=== PATIENT | female | born 1985 | race Caucasian/White ===

== ENCOUNTER → 2016-09-28 | Outpatient (CLI) | payer OTHER ==
--- NOTE | 2016-09-28 09:20 | MR ---
EXAMINATION TYPE: MR brain wo/w con DATE OF EXAM: 09/28/2016 8:03 AM COMPARISON: CT brain January 25, 2012. HISTORY: Headaches unusual duration greater than 2 weeks not responding to therapy per order. Migrain e headaches per patient. TECHNIQUE: Multiplanar, multisequence images of the brain and brainstem is performed without and with IV contras t, utilizing 19 mL intravenous MultiHance . FINDINGS: Diffusion weighted images demonstrate no evidence of a recent infarct or other diffusion ab normality. There is no extra-axial fluid collection or significant white matter signal abnormality. The ventricular system and cisternal spaces are normal in size and appearance. The brain volume is age appropriate. Midline structures demonstrate normal morphology. The craniocervical junction appears within normal limits. Post contrast images demonstrate no abnormal enhancement. The dural venous sinuses appear pa tent. There is mild mucosal thickening inferiorly in bilateral maxillary sinuses otherwise paranasal sinuses are clear. The globes are intact bilaterally. IMPRESSION: Mild chronic maxillary sinus disease otherwise unremarkable study.
== END | disposition home or self-care (01) ==
LOC: RADMRIMAIN 07:20
PROVIDERS: ATTEND Family Medicine
DX: R51 Headache (principal)
CPT/HCPCS: 70553; A9577

== ENCOUNTER → 2016-12-07 | Outpatient (CLI) | payer BC, OTHER ==
[2016-12-07 18:34] LABS: Basophils % (A) 0 %; CH 31.1; CHCM 34.4; Eosinophils # (A) 0.2 k/uL (0-0.7); Eosinophils % (A) 2 %; HCT 40.8 % (34.0-46.0); HDW 2.43; HGB 13.8 gm/dL (11.4-16.0); Luc % (Auto) 2; Lymphocytes # (A) 2.1 k/uL (1.0-4.8); Lymphocytes % (A) 31 %; MCH 30.6 pg (25.0-35.0); MCHC 33.8 g/dL (31.0-37.0); MCV 90.7 fL (80.0-100.0); Mean Platelet Volume 8.2; Monocytes # (A) 0.4 k/uL (0-1.0); Monocytes % (A) 5 %; Neutrophils # (A) 4.2 k/uL (1.3-7.7); Neutrophils % (A) 60 %; RDW 12.6 % (11.5-15.5); WBC (Perox) 6.78
[2016-12-07 18:59] LABS: ALT 41 U/L (9-52); AST 26 U/L (14-36); Alkaline Phosphatase 69 U/L (38-126); Anion Gap 13 mmol/L; Blood Urea Nitrogen 10 mg/dL (7-17); Calcium 9.8 mg/dL (8.4-10.2); Carbon Dioxide 25 mmol/L (22-30); Chloride 102 mmol/L (98-107); Cholesterol 149 mg/dL (<200); Glucose 88 mg/dL (74-99); HDL Cholesterol 39 mg/dL (40-60); Non-African American GFR(MDRD) >60 (>60 ml/min/1.73 sqM); Potassium 3.9 mmol/L (3.5-5.1); Sodium 140 mmol/L (137-145); Total Bilirubin 0.4 mg/dL (0.2-1.3); Total Protein 6.8 g/dL (6.3-8.2); Triglycerides 115 mg/dL (<150)
== END ==
LOC: MMGSC 13:50
PROVIDERS: ATTEND Family Medicine
DX: Z00.00 Encounter for general adult medical examination without abnormal findings (principal)
CPT/HCPCS: 36415; 80053; 80061; 84439; 84443; 85025

== ENCOUNTER 2017-01-06 00:31 | Emergency (ER) | payer BC, OTHER ==
[2017-01-06 01:55] LABS: Appearance,Urine Clear (Clear); Bacteria,Urine Rare /hpf; Bilirubin,Urine Negative (Negative); Glucose,Urine (UA) Negative (Negative); Ketones,Urine Negative (Negative); Leukocyte Esterase,Urine Small (Negative); Nitrite,Urine Negative (Negative); Particle Count 4079; Protein,Urine Negative (Negative); RBC,Urine 2 /hpf (0-5); Specific Gravity,Urine 1.002 (1.001-1.035); Squamous Epithelial Cell,Urine 1 /hpf (0-4); UA Billing (MACRO vs. MICRO) MICRO; Urobilinogen,Urine <2.0 mg/dL (<2.0); WBC,Urine 2 /hpf (0-5)
--- NOTE | 2017-01-06 02:47 | US ---
EXAM: US First Trimester, Transabdominal US , Transvaginal CLINICAL HISTORY: Reason: Pain TECHNIQUE: Real-time transabdominal and transvaginal obstetrical ultrasound of the maternal pelvis and a first trimester with image documentation. Transvaginal imaging was used for better evaluation of the fetus and adnexa. COMPARISON: None FINDINGS: Gestation: Single live intrauterine gestation with heart rate of 114 BPM. [place]-rump length measurement is 3.4 mm corresponding to 6 weeks 0 days. MAYRA is 09/01/2017. Date of last menstrual period is unknown. Normal yolk sac visualized measuring 3 mm. Placenta/amniotic fluid: There is a subchorionic hemorrhage measuring 1.1 x 0.5 x 0.4 cm. Uterus/cervix: The uterus measures 9.0 x 4.5 x 5.3 cm. No myometrial mass. Ovaries: The right ovary has normal morphology measuring 2.7 x 1.8 x 1. 6 cm. The left ovary measures 3.3 x 2.4 x 3.4 cm. There is a corpus luteal cyst measuring 1.7 x 1.6 x 1.9 cm. No mass. Free fluid: No pelvic free fluid. IMPRESSION: 1. Single live intrauterine gestation with ultrasound gestational age of 6 weeks 0 days, MAYRA 09/01/2017. 2. Small subchorionic hemorrhage measures 1.1 x 0.5 x 0.4 cm. Serial trending beta hCG values along with short-term interval obstetrical ultrasound recommended for follow-up.
--- NOTE | 2017-01-06 02:49 | ED ---
Female Urogenital HPI - General Chief complaint: Urogenital Stated complaint: , bleeding Time Seen by Provider: 01/06/17 00:54 Source: patient, RN notes reviewed, old records reviewed Mode of arrival: ambulatory Limitations: no limitations - Related Data Allergies Allergy/AdvReac Type Severity Reaction Status Date / Time No Known Allergies Allergy Verified 01/06/17 00:51 Review of Systems ROS Statement: Those systems with pertinent positive or pertinent negative responses have been documented in the HPI. ROS Other: All systems not noted in ROS Statement are negative. Past Medical History Past Medical History: Hypertension History of Any Multi-Drug Resistant Organisms: None Reported Past Surgical History: Cholecystectomy Past Psychological History: No Psychological Hx Reported Smoking Status: Current every day smoker Past Alcohol Use History: None Reported Past Drug Use History: None Reported General Exam - General Exam Comments Initial Comments: Well-appearing 31-year-old female. No acute distress. Limitations: no limitations General appearance: alert, in no apparent distress Head exam: Present: atraumatic, normocephalic, normal inspection Eye exam: Present: normal appearance, PERRL, EOMI. Absent: scleral icterus, conjunctival injection, periorbital swelling ENT exam: Present: normal exam, mucous membranes moist Neck exam: Present: normal inspection. Absent: tenderness, meningismus, lymphadenopathy Respiratory exam: Present: normal lung sounds bilaterally. Absent: respiratory distress, wheezes, rales, rhonchi, stridor Cardiovascular Exam: Present: regular rate, normal rhythm, normal heart sounds. Absent: systolic murmur, diastolic murmur, rubs, gallop, clicks GI/Abdominal exam: Present: soft, normal bowel sounds. Absent: distended, tenderness, guarding, rebound, rigid Extremities exam: Present: normal inspection, full ROM, normal capillary refill. Absent: tenderness, pedal edema, joint swelling, calf tenderness Back exam: Present: normal inspection Neurological exam: Present: alert, oriented X3, CN II-XII intact Psychiatric exam: Present: normal affect, normal mood Skin exam: Present: warm, dry, intact, normal color. Absent: rash Course Vital Signs 01/06/17 00:47 Temperature 98.6 F Pulse Rate 92 Respiratory 20 Rate Blood Pressure 113/72 O2 Sat by Pulse 100 Oximetry Medical Decision Making - Medical Decision Making 31-year-old female since eating chief complaint of concern for a threatened miscarriage. She reports she did have some bleeding when she had a bowel movement. Patient reports no continued bleeding at this time. Ultrasound shows IUP of 6 weeks and 2 days. Vaginal exam shows no evidence of clots or dilated cervix. Patient has no cervical tenderness. We did culture for trichomoniasis and gonorrhea and chlamydia. Patient is currently pending. HCG and the ABO Rh. - Lab Data Lab Results 01/06/17 01/06/17 01/06/17 Range/Units 01:30 02:20 02:20 HCG, Quant 80547.7 mIU/mL Urine Color Colorless Urine Appearance Clear (Clear) Urine pH 7.0 (5.0-8.0) Ur Specific [place] 1.002 (1.001-1.035) Urine Protein Negative (Negative) Urine Glucose (UA) Negative (Negative) Urine Ketones Negative (Negative) Urine Blood Trace H (Negative) Urine Nitrite Negative (Negative) Urine Bilirubin Negative (Negative) Urine Urobilinogen <2.0 (<2.0) mg/dL Ur Leukocyte Esterase Small H (Negative) Urine RBC 2 (0-5) /hpf Urine WBC 2 (0-5) /hpf Ur Squamous Epith Cells 1 (0-4) /hpf Urine Bacteria Rare H (None) /hpf Blood Type A Positive Blood Type Recheck A Pos - Radiology Data Radiology results: report reviewed Disposition Clinical Impression: Threatened miscarriage Disposition: HOME SELF-CARE Condition: Good Instructions: Threatened Miscarriage (ED) Additional Instructions: Patient advised to repeat blood work in 2 days. Return to the emergency department if any alarming signs or symptoms occur. Follow-up with SUPERVISING NURSE. Referrals: Yina Barboza MD [Primary Care Provider] - 1-2 days Time of Disposition: 03:10
[2017-01-06 04:02] VITALS: BP 100/62; PULSE 73; RESP 18; TEMP 97.7
== END 2017-01-06 03:29 | disposition home or self-care (01) ==
LOC: EC 00:31
DX: O20.0 Threatened abortion (principal); O99.331 Smoking (tobacco) complicating pregnancy, first trimester; F17.200 Nicotine dependence, unspecified, uncomplicated; Z3A.01 Less than 8 weeks gestation of pregnancy
CPT/HCPCS: 36415; 76801; 76817; 81001; 84702; 86900; 86901; 87070; 87086; 87205; 87491; 87591; 87808; 99284

== ENCOUNTER → 2017-01-08 | Outpatient (CLI) | payer BC | END | disposition home or self-care (01) | LOC: LABWHC1 09:31 | PROVIDERS: ATTEND Physician Assistant Medical | DX: O20.0 Threatened abortion (principal) | CPT/HCPCS: 36415; 84702 ==

== ENCOUNTER 2017-02-18 16:11 | Emergency (ER) | payer BC ==
[2017-02-18] MEDS ORDERED: diphenhydrAMINE 50 MG/ML 1 ML VIAL IVP STA (16:46)
[2017-02-18] MEDS ORDERED: SODIUM CHLORIDE 0.9% 1,000 ML IV STA ×2 (16:46)
[2017-02-18] MEDS ORDERED: METOCLOPRAMIDE 5 MG/ML 2 ML VIAL IVP STA (16:46)
--- NOTE | 2017-02-18 16:52 | ED ---
Nausea/Vomiting/Diarrhea HPI - General Chief complaint: Nausea/Vomiting/Diarrhea Stated complaint: Vomiting 12 weeks Time Seen by Provider: 02/18/17 16:20 Source: patient, RN notes reviewed, old records reviewed Mode of arrival: ambulatory Limitations: no limitations - History of Present Illness Initial comments: This is a 31-year-old female presenting to the emergency Department chief complaint of increased nausea and some right lower quadrant abdominal pain as well as a fever today. Patient currently is 12 weeks . She was urged to come in here by her METAL MACHINIST. Patient reports she is 12 weeks . Patient states that she's had no abnormal vaginal bleeding or discharge. She states that she's had no urinary symptoms. She states any time she's been trying to eat or drink anything today she vomits it back up. Surgical history includes cholecystectomy. Patient states that she had fever 100.2, and took a Tylenol. She states that that was 2 hours prior to arrival and I have a fever at this time. - Related Data Home Medications Medication Instructions Recorded Confirmed Buprenorphine HCl [Subutex] 4 mg SL DAILY 02/18/17 02/18/17 Ondansetron Odt [Zofran ODT] 4 mg PO Q6HR 02/18/17 02/18/17 Pnv,Calcium 72/Iron/Folic Acid 1 tab PO DAILY 02/18/17 02/18/17 [ Plus Tablet] Zoloft Unknown Dose 1 tab PO DAILY 02/18/17 02/18/17 Previous Rx's Medication Instructions Recorded Metoclopramide [Reglan] 10 mg PO ACHS #12 tab 02/18/17 Allergies Allergy/AdvReac Type Severity Reaction Status Date / Time No Known Allergies Allergy Verified 02/18/17 16:53 Review of Systems ROS Statement: Those systems with pertinent positive or pertinent negative responses have been documented in the HPI. ROS Other: All systems not noted in ROS Statement are negative. Past Medical History Past Medical History: Hypertension History of Any Multi-Drug Resistant Organisms: None Reported Past Surgical History: Cholecystectomy Past Psychological History: Anxiety, Depression Smoking Status: Current every day smoker Past Alcohol Use History: None Reported Past Drug Use History: None Reported General Exam - General Exam Comments Initial Comments: 31-year-old female. Patient will be in any acute distress. Limitations: no limitations General appearance: alert, in no apparent distress Head exam: Present: atraumatic, normocephalic, normal inspection Eye exam: Present: normal appearance, PERRL, EOMI. Absent: scleral icterus, conjunctival injection, periorbital swelling ENT exam: Present: normal exam, mucous membranes moist Neck exam: Present: normal inspection. Absent: tenderness, meningismus, lymphadenopathy Respiratory exam: Present: normal lung sounds bilaterally Cardiovascular Exam: Present: regular rate GI/Abdominal exam: Present: soft, tenderness (Patient has right lower quadrant abdominal tenderness.), normal bowel sounds. Absent: distended, guarding, rebound, rigid Extremities exam: Present: normal inspection, full ROM, normal capillary refill. Absent: tenderness, pedal edema, joint swelling, calf tenderness Back exam: Present: normal inspection Neurological exam: Present: alert, oriented X3, CN II-XII intact Psychiatric exam: Present: normal affect, normal mood Skin exam: Present: warm, dry, intact, normal color. Absent: rash Course Vital Signs 02/18/17 02/18/17 02/18/17 16:15 18:08 19:17 Temperature 98.1 F 98.0 F Pulse Rate 76 71 69 Respiratory 16 18 18 Rate Blood Pressure 105/54 100/59 104/61 O2 Sat by Pulse 98 99 97 Oximetry Medical Decision Making - Medical Decision Making 31-year-old female 12 weeks increased vomiting and right lower quadrant abdominal pain. Patient was given IV fluids and labwork obtained. White blood cell count. Ultrasound of the the appendix was performed, appendix was not 100% visualized but no infiltrate changes noted. Patient was reevaluated and is nontender. Ultrasound OB shows normal 12 week IUP. Normal heart tones. Patient urinalysis was negative for any sign of infection as well. Discussed the patient likely has some viral gastroenteritis. Discussed monitoring for any worsening fevers, just Tylenol appropriately. Discussed that she can return if she is continuing to have a fever and the pain is continuing to worsen or persist. As this could be sign of early appendicitis. Patient understands treatment plan will comply. She will be discharged with Reglan for further nausea management. - Lab Data Result diagrams: 02/18/17 17:00 02/18/17 17:00 Lab Results 02/18/17 02/18/17 02/18/17 Range/Units 17:00 17:00 17:00 WBC 6.8 (3.8-10.6) k/uL RBC 3.93 (3.80-5.40) m/uL Hgb 12.1 (11.4-16.0) gm/dL Hct 34.3 (34.0-46.0) % MCV 87.1 (80.0-100.0) fL MCH 30.7 (25.0-35.0) pg MCHC 35.2 (31.0-37.0) g/dL RDW 13.2 (11.5-15.5) % Plt Count 267 (150-450) k/uL Neutrophils % 63 % Lymphocytes % 30 % Monocytes % 4 % Eosinophils % 2 % Basophils % 0 % Neutrophils # 4.3 (1.3-7.7) k/uL Lymphocytes # 2.1 (1.0-4.8) k/uL Monocytes # 0.3 (0-1.0) k/uL Eosinophils # 0.1 (0-0.7) k/uL Basophils # 0.0 (0-0.2) k/uL PT (9.0-12.0) sec INR (<1.2) APTT (22.0-30.0) sec Sodium 137 (137-145) mmol/L Potassium 4.6 (3.5-5.1) mmol/L Chloride 106 (98-107) mmol/L Carbon Dioxide 23 (22-30) mmol/L Anion Gap 8 mmol/L BUN 7 (7-17) mg/dL Creatinine 0.50 L (0.52-1.04) mg/dL Est GFR (MDRD) Af Amer >60 (>60 ml/min/1.73 sqM) Est GFR (MDRD) Non-Af >60 (>60 ml/min/1.73 sqM) Glucose 86 (74-99) mg/dL Plasma Lactic Acid Amrit 0.9 (0.7-2.0) mmol/L Calcium 9.3 (8.4-10.2) mg/dL Total Bilirubin 0.4 (0.2-1.3) mg/dL AST 31 (14-36) U/L ALT 34 (9-52) U/L Alkaline Phosphatase 62 (38-126) U/L Troponin I (0.000-0.034) ng/mL Total Protein 6.1 L (6.3-8.2) g/dL Albumin 3.5 (3.5-5.0) g/dL Amylase 36 (30-110) U/L Lipase 45 (23-300) U/L Urine Color Urine Appearance (Clear) Urine pH (5.0-8.0) Ur Specific [place] (1.001-1.035) Urine Protein (Negative) Urine Glucose (UA) (Negative) Urine Ketones (Negative) Urine Blood (Negative) Urine Nitrite (Negative) Urine Bilirubin (Negative) Urine Urobilinogen (<2.0) mg/dL Ur Leukocyte Esterase (Negative) Urine RBC (0-5) /hpf Urine WBC (0-5) /hpf Ur Squamous Epith Cells (0-4) /hpf Urine Mucus (None) /hpf 02/18/17 02/18/17 02/18/17 Range/Units 17:00 17:00 17:33 WBC (3.8-10.6) k/uL RBC (3.80-5.40) m/uL Hgb (11.4-16.0) gm/dL Hct (34.0-46.0) % MCV (80.0-100.0) fL MCH (25.0-35.0) pg MCHC (31.0-37.0) g/dL RDW (11.5-15.5) % Plt Count (150-450) k/uL Neutrophils % % Lymphocytes % % Monocytes % % Eosinophils % % Basophils % % Neutrophils # (1.3-7.7) k/uL Lymphocytes # (1.0-4.8) k/uL Monocytes # (0-1.0) k/uL Eosinophils # (0-0.7) k/uL Basophils # (0-0.2) k/uL PT 9.9 (9.0-12.0) sec INR 1.0 (<1.2) APTT 23.4 (22.0-30.0) sec Sodium (137-145) mmol/L Potassium (3.5-5.1) mmol/L Chloride (98-107) mmol/L Carbon Dioxide (22-30) mmol/L Anion Gap mmol/L BUN (7-17) mg/dL Creatinine (0.52-1.04) mg/dL Est GFR (MDRD) Af Amer (>60 ml/min/1.73 sqM) Est GFR (MDRD) Non-Af (>60 ml/min/1.73 sqM) Glucose (74-99) mg/dL Plasma Lactic Acid Amrit (0.7-2.0) mmol/L Calcium (8.4-10.2) mg/dL Total Bilirubin (0.2-1.3) mg/dL AST (14-36) U/L ALT (9-52) U/L Alkaline Phosphatase (38-126) U/L Troponin I <0.012 (0.000-0.034) ng/mL Total Protein (6.3-8.2) g/dL Albumin (3.5-5.0) g/dL Amylase (30-110) U/L Lipase (23-300) U/L Urine Color Yellow Urine Appearance Cloudy H (Clear) Urine pH 6.5 (5.0-8.0) Ur Specific [place] 1.014 (1.001-1.035) Urine Protein Negative (Negative) Urine Glucose (UA) Negative (Negative) Urine Ketones Negative (Negative) Urine Blood Negative (Negative) Urine Nitrite Negative (Negative) Urine Bilirubin Negative (Negative) Urine Urobilinogen <2.0 (<2.0) mg/dL Ur Leukocyte Esterase Small H (Negative) Urine RBC 3 (0-5) /hpf Urine WBC 3 (0-5) /hpf Ur Squamous Epith Cells 7 H (0-4) /hpf Urine Mucus Rare H (None) /hpf Disposition Clinical Impression: Vomiting , Abdominal pain affecting Disposition: HOME SELF-CARE Condition: Good Instructions: Abdominal Pain in (ED) Additional Instructions: Patient is to rest, increase fluids. Return to the emergency department if fevers continue to persist or worsen, patient also needs to monitor for any worsening abdominal pain. Take nausea medication as prescribed. Follow-up with her primary care METAL MACHINIST. Return to emergency department if any alarming signs or symptoms occur. Prescriptions: Metoclopramide [Reglan] 10 mg PO ACHS #12 tab Referrals: Yina Barboza MD [Primary Care Provider] - 1-2 days Time of Disposition: 18:39
[2017-02-18 17:19] LABS: Basophils % (A) 0 %; CH 31.1; CHCM 35.9; Eosinophils # (A) 0.1 k/uL (0-0.7); Eosinophils % (A) 2 %; HCT 34.3 % (34.0-46.0); HDW 2.53; HGB 12.1 gm/dL (11.4-16.0); Luc # (Auto) 0.07; Luc % (Auto) 1; Lymphocytes # (A) 2.1 k/uL (1.0-4.8); Lymphocytes % (A) 30 %; MCH 30.7 pg (25.0-35.0); MCHC 35.2 g/dL (31.0-37.0); MCV 87.1 fL (80.0-100.0); Mean Platelet Volume 8.3; Monocytes # (A) 0.3 k/uL (0-1.0); Monocytes % (A) 4 %; Neutrophils # (A) 4.3 k/uL (1.3-7.7); Neutrophils % (A) 63 %; RBC 3.93 m/uL (3.80-5.40); RDW 13.2 % (11.5-15.5); WBC 6.8 k/uL (3.8-10.6); WBC (Perox) 6.72
[2017-02-18 17:31] LABS: Appearance,Urine Cloudy (Clear); Bilirubin,Urine Negative (Negative); Glucose,Urine (UA) Negative (Negative); Ketones,Urine Negative (Negative); Leukocyte Esterase,Urine Small (Negative); Mucus,Urine Rare /hpf; Nitrite,Urine Negative (Negative); PH, Urine 6.5 (5.0-8.0); Particle Count 4492; Protein,Urine Negative (Negative); RBC,Urine 3 /hpf (0-5); Specific Gravity,Urine 1.014 (1.001-1.035); Squamous Epithelial Cell,Urine 7 /hpf (0-4); UA Billing (MACRO vs. MICRO) MICRO; Urobilinogen,Urine <2.0 mg/dL (<2.0); WBC,Urine 3 /hpf (0-5)
[2017-02-18 17:39] LABS: ALT 34 U/L (9-52); AST 31 U/L (14-36); Alkaline Phosphatase 62 U/L (38-126); Amylase 36 U/L (30-110); Anion Gap 8 mmol/L; Blood Urea Nitrogen 7 mg/dL (7-17); Calcium 9.3 mg/dL (8.4-10.2); Carbon Dioxide 23 mmol/L (22-30); Chloride 106 mmol/L (98-107); Glucose 86 mg/dL (74-99); Non-African American GFR(MDRD) >60 (>60 ml/min/1.73 sqM); Potassium 4.6 mmol/L (3.5-5.1); Sodium 137 mmol/L (137-145); Total Bilirubin 0.4 mg/dL (0.2-1.3); Total Protein 6.1 g/dL (6.3-8.2)
[2017-02-18 17:50] LABS: Partial Thromboplastin Time 23.4 sec (22.0-30.0); Prothrombin Time 9.9 sec (9.0-12.0)
[2017-02-18 18:08] VITALS: RESP 18
--- NOTE | 2017-02-18 18:15 | US ---
EXAMINATION TYPE: US abdomen APPY DATE OF EXAM: 02/18/2017 COMPARISON: NONE CLINICAL HISTORY: Pain. 12 weeks , mild pelvic pain, fever earlier today, nausea/vomiting, on Zofran already Scanned RLQ and no visible sign of appendix seen. Enlarging UT noted along with iliac vessels and rig ht ovary. No tubular structure, free fluid or any other etiology noticed. IMPRESSION: Appendix is not visualized. No specific sign of appendicitis.
--- NOTE | 2017-02-18 18:17 | US ---
EXAMINATION TYPE: US OB <= 14 wk fetus DATE OF EXAM: 02/18/2017 COMPARISON: 01/06/2017 CLINICAL HISTORY: Pain. Nausea and vomiting, patient already on Zofran, mild pelvic pain EXAM PERFORMED: OBTA EXAM MEASUREMENTS: GESTATIONAL AGE / DATING Physician Established: (12 weeks/3 days) EDC: 08/30/2017 Dates by LMP: unknown Dates by First Scan: (12 weeks/1 days) EDC: 09/01/2017 Dates by Current Scan for: (12 weeks/4 days) EDC: 08/29/2017 MATERNAL ANATOMY Uterus: 13.2 x 9.7 x 8.2cm Right Ovary: 2.5 x 1.8 x 1.7cm Left Ovary: 3.9 x 3.3 x 2.6cm Post CDS / Adnexa: wnl Presence of free fluid: no Presence of corpus luteal cyst: yes, left ovary = 1.9cm Presence of subchorionic bleed: no GESTATION / SURVEY CRL: 6.1cm (12 weeks/4 days) MSD: wnl Yolk Sac (normal less than 6mm): not seen Heart Rate: 151 bpm Rhythm: Normal IUP: Viable IUP Date of LMP: unknown Beta HcG (if available): pending IMPRESSION: The ultrasound gestational age is 12 weeks 4 days. The MAYRA is 08/29/2017. There is satisfactory develo pment compared to last exam of 01/06/2017.
[2017-02-18 19:18] VITALS: BP 104/61; PULSE 69; TEMP 98
== END 2017-02-18 19:18 | disposition home or self-care (01) ==
LOC: EC 16:11
DX: O21.9 Vomiting of pregnancy, unspecified (principal); O99.89 Other specified diseases and conditions complicating pregnancy, childbirth and the puerperium; R10.31 Right lower quadrant pain; I10 Essential (primary) hypertension; F32.9 Major depressive disorder, single episode, unspecified; F41.9 Anxiety disorder, unspecified; Z3A.12 12 weeks gestation of pregnancy; F17.200 Nicotine dependence, unspecified, uncomplicated; Z79.899 Other long term (current) drug therapy
CPT/HCPCS: 36415; 80053; 82150; 83605; 83690; 84484; 85025; 85610; 85730; 81001; 87040; 76705; 76801; 99284; 96374; 96375; 96361 ×2; J1200; J2765

== ENCOUNTER 2017-05-02 19:42 | Outpatient (CLI) | payer BC ==
[2017-05-02] MEDS ORDERED: ONDANSETRON 4 MG/2 ML VIAL IVP STA (20:14)
[2017-05-02] MEDS ORDERED: LACTATED RINGERS 1,000 ML IV ONE (20:15)
[2017-05-02 20:42] LABS: Appearance,Urine Cloudy (Clear); Bilirubin,Urine 1+ (Negative); Glucose,Urine (UA) Negative (Negative); Ketones,Urine Negative (Negative); Leukocyte Esterase,Urine Trace (Negative); Mucus,Urine Moderate /hpf; Nitrite,Urine Negative (Negative); Particle Count 10511; Protein,Urine 1+ (Negative); RBC,Urine 3 /hpf (0-5); Specific Gravity,Urine 1.023 (1.001-1.035); Squamous Epithelial Cell,Urine 8 /hpf (0-4); UA Billing (MACRO vs. MICRO) MICRO; WBC,Urine 3 /hpf (0-5)
[2017-05-02 21:17] VITALS: BP 116/61; PULSE 93; RESP 18; TEMP 97.7
--- NOTE | 2017-05-10 13:06 | P.MSEPDOC ---
Presenting Problems - Arrival Data Date of Arrival on Unit: 05/02/17 Time of Arrival on Unit: 19:42 Mode of Transport: Wheelchair - Complaint OB-Reason for Admission/Chief Complaint: Other Comment: nash, n/v Medical History - Information : 2 Para: 1 Term: 1 : 0 Abortions: Spontaneous or Elective: 0 Number of Living Children: 1 - Gestational Age Gestational Age by MAYRA (wks/days): 23 Weeks and 5 Days Review of Systems - Review of Systems Constitutional: No problems Breast: No problems ENT: No problems Cardiovascular: No problems Respiratory: No problems Gastrointestinal: No problems Genitourinary: No problems Musculoskeletal: No problems Neurological: No problems Skin: No problems Vital Signs - Temperature Temperature: 97.7 F Temperature Source: Temporal Artery Scan - Pulse Right Brachial Pulse Rate: 93 Pulse Assessment Method: Automatic Cuff - Respirations Respiratory Rate: 18 Oxygen Delivery Method: Room Air O2 Sat by Pulse Oximetry: 100 - Blood Pressure Right Arm Blood Pressure: 116/61 Blood Pressure Mean: 79 Blood Pressure Source: Automatic Cuff Medical Screen Scoring (Pre) - Cervical Exam Dilation: Exam Deferred Effacement: Exam Deferred Membranes: Intact - Uterine Contractions Frequency: N/A Duration: N/A Intensity: N/A - Maternal Vital Signs Maternal Temperature: N/A Maternal Blood Pressure: N/A Signs of Preeclampsia: N/A Maternal Respirations: N/A - Pain Assessment Pain Scale Used: Numeric (1 - 10) Pain Intensity: 0 - Maternal Trauma Maternal Trauma: N/A - Assessment Baseline FHR: 140 Heart Rate - NICHD Category: Category I (Normal) = 0 Position: N/A Station: N/A - Total Score Total Score (Pre): 0 - Level of Risk Level of Risk: N/A Physician Notification (Pre) - Physician Notified Physician Notified Date: 05/02/17 Physician Notified Time: 20:11 Physician/Practitioner Notifed:: Dr. Reardon Spoke With: Dr. Reardon New Order Received: Yes - Notification Comment Comment: give LR fluid bolus, obtain UA, and zofran IVp Medical Screen Scoring (Post) - Cervical Exam Dilation: Exam Deferred Effacement: Exam Deferred Membranes: Intact - Uterine Contractions Frequency: N/A Duration: N/A Intensity: N/A - Maternal Vital Signs Maternal Temperature: N/A Maternal Blood Pressure: N/A Signs of Preeclampsia: N/A Maternal Respirations: N/A - Pain Assessment Pain Scale Used: Numeric (1 - 10) Pain Intensity: 0 - Maternal Trauma Maternal Trauma: N/A - Assessment Heart Rate: 145 Heart Rate - NICHD Category: Category I (Normal) = 0 Position: N/A Station: N/A - Total Score Total Score (Post): 0 - Post Treatment Level of Risk Post Treatment Level of Risk: Low (0-5) Physician Notification (Post) - Physician Notified Physician Notified Date: 05/02/17 Physician Notified Time: 21:19 Physician/Practitioner Notified:: Dr. Reardon Spoke With: Dr. Reardon New Order Received: Yes - Notification Comment Comment: discharged pt home, follow up with Dr. Shaffer in office at scheduled appt Disposition - Disposition OB Disposition: Discharge to home, Written follow up instructions reviewed Discharge Date: 05/02/17 Discharge Time: 21:35 I agree with the RN Medical Screening Exam: Yes Risk & Benefit of care provided described in d/c instruction: Yes Diagnosis: VOMITING OF , UNSPECIFIED
== END 2017-05-02 21:35 | disposition home or self-care (01) ==
LOC: FBPOP 19:42
PROVIDERS: ATTEND Obstetrics & Gynecology
DX: O21.9 Vomiting of pregnancy, unspecified (principal); Z3A.23 23 weeks gestation of pregnancy
CPT/HCPCS: 99214; 96361; 96374; 81001; J2405

== ENCOUNTER 2017-06-02 09:53 | Outpatient (CLI) | payer BC ==
[2017-06-02] MEDS ORDERED: IBUPROFEN 600 MG TAB PO STA (10:40)
[2017-06-02 11:12] LABS: Appearance,Urine Cloudy (Clear); Bacteria,Urine Rare /hpf; Bilirubin,Urine Negative (Negative); Blood,Urine Negative (Negative); Color,Urine Yellow; Glucose,Urine (UA) Negative (Negative); Ketones,Urine Negative (Negative); Leukocyte Esterase,Urine Negative (Negative); Mucus,Urine Rare /hpf; Nitrite,Urine Negative (Negative); Protein,Urine Negative (Negative); RBC,Urine 1 /hpf (0-5); Specific Gravity,Urine 1.016 (1.001-1.035); Squamous Epithelial Cell,Urine 8 /hpf (0-4); Urobilinogen,Urine <2.0 mg/dL (<2.0); WBC,Urine 3 /hpf (0-5)
[2017-06-02 11:17] VITALS: BP 101/59; PULSE 83; RESP 18; TEMP 98.2
--- NOTE | 2017-07-07 14:19 | P.MSEPDOC ---
Presenting Problems - Arrival Data Date of Arrival on Unit: 06/02/17 Time of Arrival on Unit: 10:00 Mode of Transport: Ambulatory - Complaint OB-Reason for Admission/Chief Complaint: Headache Comment: Pt complains of headache since wednesday, tylenol and chiropractor did not relieve pain, sharp pain on right side of abdomen, complains of pressure that feels like she has to urinate, woke up this am drenched in sweat. Medical History - Information : 2 Para: 1 Term: 1 : 0 Abortions: Spontaneous or Elective: 0 Number of Living Children: 1 - Gestational Age Gestational Age by MAYRA (wks/days): 28 Weeks and 2 Days - History Complications: Smoker Comment: Hx lortab abuse Review of Systems - Review of Systems Constitutional: No problems Breast: No problems ENT: No problems Cardiovascular: No problems Respiratory: No problems Gastrointestinal: No problems Genitourinary: No problems Musculoskeletal: No problems Neurological: No problems Skin: No problems Vital Signs - Temperature Temperature: 98.2 F Temperature Source: Temporal Artery Scan - Pulse Pulse Oximetery Pulse Rate: 83 Pulse Assessment Method: Automatic Cuff - Respirations Respiratory Rate: 18 Oxygen Delivery Method: Room Air O2 Sat by Pulse Oximetry: 97 - Blood Pressure Right Arm Blood Pressure: 101/59 Blood Pressure Mean: 73 Blood Pressure Source: Automatic Cuff Medical Screen Scoring (Pre) - Cervical Exam Dilation: 0 cm = 0 Membranes: Intact - Uterine Contractions Frequency: N/A Duration: N/A Intensity: N/A - Maternal Vital Signs Maternal Temperature: N/A Maternal Blood Pressure: N/A Signs of Preeclampsia: N/A Maternal Respirations: N/A - Pain Assessment Pain Location and Character: Right, Abdomen Pain Scale Used: Numeric (1 - 10) Pain Intensity: 4 Pain Management Goal: 0 Pain Description: *Acute Pain Radiation Location: to right side of abdomen Pain Frequency: Intermittent Pain Duration: 2 Pain Duration Units: Days Pain Behavior: None Exhibited Pain Aggravating Factors: None Pharmacological Interventions: PRN Medication Non-Pharmacological Interventions: Darkened Room - Maternal Trauma Maternal Trauma: N/A - Assessment Baseline FHR: 145 Heart Rate - NICHD Category: Category I (Normal) = 0 NST: Reactive Position: N/A Station: N/A - Total Score Total Score (Pre): 0 - Level of Risk Level of Risk: Low (0-5) Physician Notification (Pre) - Physician Notified Physician Notified Date: 06/02/17 Physician Notified Time: 10:35 Physician/Practitioner Notifed:: Dr Shaffer Spoke With: Dr Shaffer New Order Received: Yes - Notification Comment Comment: Order to check cervix, give Motrin 600mg, send Urinalysis, and orally hydrate. Pt stated that the motrin helped relieve her headache, cervix is closed, urinalysis is negative. Pt educated, reassured and discharged home. Disposition - Disposition Discharge Date: 06/02/17 Discharge Time: 11:30 I agree with the RN Medical Screening Exam: Yes Risk & Benefit of care provided described in d/c instruction: Yes Diagnosis: HEADACHE
== END 2017-06-02 11:30 | disposition home or self-care (01) ==
LOC: FBPOP 09:53
PROVIDERS: ATTEND Obstetrics & Gynecology Obstetrics
DX: O26.893 Other specified pregnancy related conditions, third trimester (principal); R51 Headache; Z3A.28 28 weeks gestation of pregnancy
CPT/HCPCS: 59025; 81001; 99213

== ENCOUNTER 2017-07-12 19:28 | Outpatient (CLI) | payer BC, OTHER ==
[2017-07-12 23:23] VITALS: BP 110/70; PULSE 85; RESP 18; TEMP 97.1
--- NOTE | 2017-08-06 10:46 | P.MSEPDOC ---
Presenting Problems - Arrival Data Date of Arrival on Unit: 07/12/17 Time of Arrival on Unit: 19:32 Mode of Transport: Ambulatory - Complaint OB-Reason for Admission/Chief Complaint: Decreased Movement, NST Comment: to triage after calling Dr Rice for decreased movement, vomiting yesterday, pain in vagina and vag mucus. Orders from Dr Rice prior to arrival vag exam and NSt call with results Medical History - Information : 2 Para: 1 Term: 1 : 0 Abortions: Spontaneous or Elective: 0 Number of Living Children: 1 - Gestational Age Gestational Age by MAYRA (wks/days): 33 Weeks and 6 Days - History Complications: Hx. 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 was advised not to go off during prenancy due to risk of relapse more dangerous then current med. pt now aware baby will spend at least 5 days in L1N for eval for withdrawl symptoms. protocol explained now so pt is prepared. Review of Systems - Review of Systems Constitutional: No problems Breast: No problems ENT: No problems Cardiovascular: No problems Respiratory: No problems Gastrointestinal: No problems Genitourinary: No problems Musculoskeletal: No problems Neurological: No problems Skin: No problems Vital Signs - Temperature Temperature: 97.1 F Temperature Source: Oral - Pulse Left Pulse Oximetery Pulse Rate: 85 Pulse Assessment Method: Pulse Oximetry - Respirations Respiratory Rate: 18 Oxygen Delivery Method: Room Air O2 Sat by Pulse Oximetry: 99 - Blood Pressure Right Arm Blood Pressure: 110/70 Blood Pressure Mean: 83 Blood Pressure Source: Automatic Cuff Medical Screen Scoring (Pre) - Cervical Exam Dilation: 1-3 cm = 1 Membranes: Intact - Uterine Contractions Frequency: N/A Duration: N/A Intensity: N/A - Maternal Vital Signs Maternal Temperature: N/A Maternal Blood Pressure: N/A Signs of Preeclampsia: N/A Maternal Respirations: N/A - Pain Assessment Pain Location and Character: Perineal Pain Scale Used: Numeric (1 - 10) Pain Intensity: 4 Pain Management Goal: 0 Pain Description: Sharp Pain Frequency: Intermittent Pain Duration: 30 Pain Duration Units: seconds Pain Behavior: None Exhibited Pain Aggravating Factors: None - Maternal Trauma Maternal Trauma: N/A - Assessment Baseline FHR: 135 Heart Rate - NICHD Category: Category I (Normal) = 0 NST: Reactive Position: N/A - Total Score Total Score (Pre): 1 - Level of Risk Level of Risk: Low (0-5) Physician Notification (Pre) - Physician Notified Physician Notified Date: 07/12/17 Physician Notified Time: 21:05 Physician/Practitioner Notifed:: Dr Rice New Order Received: Yes - Notification Comment Comment: discharge home since vag exam 1 cm unchanged from last weeks exam in office, nst reactive, pt states pain is intermittent Disposition - Disposition OB Disposition: Discharge to home Discharge Date: 07/12/17 Discharge Time: 21:20 I agree with the RN Medical Screening Exam: Yes Risk & Benefit of care provided described in d/c instruction: Yes Diagnosis: FALSE LABOR BEFORE 37 COMPLETED WEEKS OF GEST, THIRD TRI
== END 2017-07-12 21:20 | disposition home or self-care (01) ==
LOC: FBPOP 19:28
PROVIDERS: ATTEND Obstetrics & Gynecology
DX: O47.03 False labor before 37 completed weeks of gestation, third trimester (principal); Z3A.33 33 weeks gestation of pregnancy
CPT/HCPCS: 59025; 99213

== ENCOUNTER 2017-08-23 16:26 | Outpatient (CLI) | payer OTHER ==
[2017-08-23 17:05] VITALS: BP 112/80; PULSE 89; RESP 17; TEMP 98.5
--- NOTE | 2017-09-03 10:51 | P.MSEPDOC ---
Presenting Problems - Arrival Data Date of Arrival on Unit: 08/23/17 Time of Arrival on Unit: 16:27 Mode of Transport: Ambulatory - Complaint OB-Reason for Admission/Chief Complaint: Vaginal Bleeding Comment: pt had been to see dr shaffer in the office at 1030, pt went home and reported seeing bright red bleeding when wiping, pt called office and was told to come into triage Medical History - Information : 2 Para: 1 Term: 1 : 0 Abortions: Spontaneous or Elective: 0 Number of Living Children: 1 - Gestational Age Gestational Age by MAYRA (wks/days): 38 Weeks and 6 Days - History Complications: Smoker Review of Systems - Review of Systems Constitutional: No problems Breast: No problems ENT: No problems Cardiovascular: No problems Respiratory: No problems Gastrointestinal: No problems Genitourinary: No problems Musculoskeletal: No problems Neurological: No problems Skin: No problems Vital Signs - Temperature Temperature: 98.5 F Temperature Source: Oral - Pulse Right Brachial Pulse Rate: 89 Pulse Assessment Method: Automatic Cuff - Respirations Respiratory Rate: 17 Oxygen Delivery Method: Room Air O2 Sat by Pulse Oximetry: 98 - Blood Pressure Right Arm Blood Pressure: 112/80 Blood Pressure Mean: 90 Blood Pressure Source: Automatic Cuff Medical Screen Scoring (Pre) - Cervical Exam Dilation: 1-3 cm = 1 Membranes: Intact - Uterine Contractions Frequency: > 5 minutes apart = 1 Duration: > 40 seconds = 2 Intensity: N/A - Maternal Vital Signs Maternal Temperature: N/A Maternal Blood Pressure: N/A Signs of Preeclampsia: N/A Maternal Respirations: N/A - Pain Assessment Pain Scale Used: Numeric (1 - 10) Pain Intensity: 0 - Maternal Trauma Maternal Trauma: N/A - Assessment Baseline FHR: 130 Heart Rate - NICHD Category: Category I (Normal) = 0 NST: Reactive Position: N/A Station: N/A - Total Score Total Score (Pre): 4 - Level of Risk Level of Risk: Low (0-5) Physician Notification (Pre) - Physician Notified Physician Notified Date: 08/23/17 Physician Notified Time: 16:43 Physician/Practitioner Notifed:: Dr Shaffer Spoke With: Dr Shaffer New Order Received: Yes (ok to dc home after reactive nst) Disposition - Disposition OB Disposition: Discharge to home, Written follow up instructions reviewed Discharge Date: 08/23/17 Discharge Time: 17:15 I agree with the RN Medical Screening Exam: Yes Risk & Benefit of care provided described in d/c instruction: Yes Diagnosis: FALSE LABOR AT OR AFTER 37 COMPLETED WEEKS OF GESTATION
== END 2017-08-23 17:15 | disposition home or self-care (01) ==
LOC: FBPOP 16:26
PROVIDERS: ATTEND Obstetrics & Gynecology Obstetrics
DX: Z53.9 Procedure and treatment not carried out, unspecified reason (principal)
CPT/HCPCS: 59025; 99213

== ENCOUNTER 2017-08-24 05:50 | Inpatient (IN) | payer OTHER ==
[2017-08-24] MEDS ORDERED: OXYTOCIN 10 UNIT/ML 1 ML VIAL IM PRN (06:04)
[2017-08-24] MEDS ORDERED: METHYLERGONOVINE 0.2 MG/ML 1 ML AMP IM PRN (06:04)
[2017-08-24] MEDS ORDERED: CARBOPROST TROMETHAMINE 250 MCG/ML 1 ML AMP IM PRN (06:04)
[2017-08-24] MEDS ORDERED: LIDOCAINE 1% (PF) 10 MG/ML (30 ML SDV) SQ PRN (06:04)
[2017-08-24] MEDS ORDERED: TERBUTALINE 1 MG/ML VIAL SQ PRN (06:04)
[2017-08-24 06:15] LABS: Basophils % (A) 0 %; Eosinophils # (A) 0.2 k/uL (0-0.7); Eosinophils % (A) 2 %; HCT 36.7 % (34.0-46.0); Lymphocytes # (A) 1.7 k/uL (1.0-4.8); Lymphocytes % (A) 18 %; MCH 30.6 pg (25.0-35.0); MCHC 35.5 g/dL (31.0-37.0); MCV 86.2 fL (80.0-100.0); Mean Platelet Volume 8.3; Monocytes # (A) 0.4 k/uL (0-1.0); Monocytes % (A) 5 %; Neutrophils % (A) 75 %; Platelet Count 265 k/uL (150-450); RBC 4.26 m/uL (3.80-5.40); RDW 13.2 % (11.5-15.5); WBC 9.4 k/uL (3.8-10.6)
[2017-08-24] MEDS: LACTATED RINGERS 1,000 ML IV SCH ×2 (06:21→10:18)
[2017-08-24] MEDS: OXYTOCIN 20 UNITS/1000 ML NS 1,000 ML IV SCH (06:21)
[2017-08-24 07:38] VITALS: BMI 36.6
[2017-08-24 08:42] LABS: Amphetamine Screen,Urine Not Detected (NotDetected); Barbiturate Screen,Urine Not Detected (NotDetected); Benzodiazepines Screen,Urine Not Detected (NotDetected); Cocaine Screen,Urine Not Detected (NotDetected); Methadone Screen, Urine Not Detected (NotDetected); Opiate Screen,Urine Not Detected (NotDetected); Oxycodone Screen, Urine Not Detected (NotDetected); Phencyclidine Screen,Urine Not Detected (NotDetected); Tricyclic Antidepressant,Urine Not Detected (NotDetected); Urn Cannabinoid Scrn Not Detected (NotDetected)
--- NOTE | 2017-08-24 09:41 | P.HPOB ---
History of Present Illness H&P Date: 08/24/17 Chief Complaint: IUP @ 39 0/7 IOL, This is a 32 yo at 39 weeks EDC 08/31. she presents for IOL. she notes some ctx last night, no VB. she is on suboxone in addition. she understands baby will be monitored for withdrawl symptoms. On blood work her blodd type is A pos, rubella immune, HBsAG neg, GBS neg, HIV neg, RPR NR. Review of Systems Constitutional: Denies fatigue Genitourinary: Reports Past Medical History Past Medical History: Hypertension History of Any Multi-Drug Resistant Organisms: None Reported Past Surgical History: Cholecystectomy Past Psychological History: Anxiety, Depression Smoking Status: Current every day smoker Past Alcohol Use History: None Reported Past Drug Use History: None Reported - Past Family History Father Family Medical History: Diabetes Mellitus, Hypertension, Myocardial Infarction ( [place]) Medications and Allergies Home Medications Medication Instructions Recorded Confirmed Type Buprenorphine HCl [Subutex] 4 mg SL BID 02/18/17 08/24/17 History Pnv,Calcium 72/Iron/Folic Acid 1 tab PO DAILY 02/18/17 08/24/17 History [ Plus Tablet] Sertraline [Zoloft] 50 mg PO DAILY 02/18/17 08/24/17 History Allergies Allergy/AdvReac Type Severity Reaction Status Date / Time No Known Allergies Allergy Verified 06/02/17 10:17 Exam Osteopathic Statement: *. No significant issues noted on an osteopathic structural exam other than those noted in the History and Physical/Consult. - Vital Signs Vital signs: Vital Signs Temp Pulse Resp BP 08/24/17 07:38 97.1 F L 88 16 123/87 08/24/17 07:29 97.1 F L 88 16 123/87 Intake and Output 08/23/17 08/24/17 08/24/17 22:59 06:59 14:59 Other: Weight 99.79 kg 99.79 kg Patient Weight 08/25/17 06:59 Weight 99.79 kg - OBG Physical Exam Abdomen: gravid Cervix: 4/80/-2 AROM with thin meconium Uterus: enlarged Results Result Diagrams: 08/24/17 06:04 Assessment and Plan (1) Term Narrative/Plan: admit to L and D, pitocin induction per protocol, pt desires epidural for pain management anticipate later today Current Visit: Yes Status: Acute Code(s): Z34.80 - ENCOUNTER FOR SUPRVSN OF NORMAL , UNSP TRIMESTER SNOMED Code(s): 69609087 (2) Suboxone maintenance treatment complicating , antepartum Current Visit: Yes Status: Acute Code(s): O99.320 - DRUG USE COMPLICATING , UNSPECIFIED TRIMESTER; F11.20 - OPIOID DEPENDENCE, UNCOMPLICATED SNOMED Code(s): 771853412 Time with Patient: Less than 30
[2017-08-24] MEDS ORDERED: BUPIVACAINE (PF) 0.25% 30 ML VIAL ONE (10:24)
[2017-08-24] MEDS ORDERED: SODIUM CHLORIDE 0.9% 100 ML BAG ONE (10:24)
[2017-08-24] MEDS ORDERED: fentaNYL (PF) 50 MCG/ML 5 ML AMP ONE (10:24)
[2017-08-24] MEDS ORDERED: BUPIVACAINE (PF) 0.25% 25 ML, fentaNYL (PF) 200 MCG in SODIUM CHLORIDE 0.9% 71 ML EPIDURAL ONE (10:42)
[2017-08-24] MEDS ORDERED: ZOLPIDEM 5 MG TAB PO PRN (13:23)
[2017-08-24] MEDS ORDERED: BENZOCAINE/MENTHOL SPRAY 1 GM/SPRAY AEROSOL TOPICAL PRN (13:23)
[2017-08-24] MEDS ORDERED: diphenhydrAMINE 25 MG CAP PO PRN (13:23)
[2017-08-24] MEDS ORDERED: diphenhydrAMINE 50 MG/ML 1 ML VIAL IVP PRN ×2 (13:23)
[2017-08-24] MEDS ORDERED: diphenhydrAMINE 50 MG CAP PO PRN (13:23)
[2017-08-24] MEDS ORDERED: LANOLIN CREAM 5 GM TUBE TOPICAL PRN (13:23)
[2017-08-24] MEDS ORDERED: HYDROCORTISONE 2.5% RECTAL CREAM 30 GM TUBE RECTAL PRN (13:23)
[2017-08-24] MEDS ORDERED: WITCH HAZEL 1 EACH MED..PAD TOPICAL PRN (13:23)
[2017-08-24] MEDS ORDERED: SIMETHICONE 80 MG CHEWABLE PO PRN (13:23)
--- NOTE | 2017-08-24 13:32 | P.PROBDLV ---
Vaginal Delivery Note - . Vaginal Delivery Note: this is a 32 yo at 39 weeks that presents for IOL. she is taking subutex daily in addition. she was started on pitocin per protocol and amniotomy was preformed at 4cm, thin meconium fluid was noted. anesthesia was noted for delivery. she progressed to complete after epidural was done. she began pushing with poor maternal effort, OP presentation was noted and pt was plaed in hands and knees. Pt progressed to +2 and was unable to push vaccum was offered, informed consent was obtained. vaccum was applied with 1 contraction and was delivered in an OA presentation. anterior shoulder was delivered without difficulty followed by posterior shoulder, body was delivered and placed on [facility] abdomen. the umbilical cord was then clamped ans cut. Infant was noted to have a heart rate of 120's. spontaneous cry was noted mom and infant tolerated delivery well, Infant was taken to the special care nursery for observation. EBL 300 delivery and care discussed with mom and dad.
[2017-08-24] MEDS: IBUPROFEN 600 MG TAB PO PRN ×2 (14:57→23:05)
[2017-08-24] MEDS: ACETAMINOPHEN TAB 325 MG TAB PO PRN (19:59)
[2017-08-24] MEDS: SENNOSIDES-DOCUSATE SODIUM 1 EACH TAB PO SCH (20:12)
[2017-08-24] MEDS: SUBUTEX 8 MG SL SCH (20:16)
[2017-08-25] MEDS: ACETAMINOPHEN TAB 325 MG TAB PO PRN ×3 (04:04→19:53)
[2017-08-25] MEDS: LACTATED RINGERS 1,000 ML IV SCH (07:24)
[2017-08-25] MEDS: OXYTOCIN 20 UNITS/1000 ML NS 1,000 ML IV SCH (07:24)
[2017-08-25] MEDS: SERTRALINE 50 MG TAB PO SCH (07:25)
[2017-08-25] MEDS: SENNOSIDES-DOCUSATE SODIUM 1 EACH TAB PO SCH ×2 (07:29→19:53)
[2017-08-25] MEDS: IBUPROFEN 600 MG TAB PO PRN ×3 (07:29→23:17)
[2017-08-25] MEDS: PRENATAL VIT-IRON-FOLIC ACID 1 EACH CAP PO SCH (07:29)
--- NOTE | 2017-08-25 08:35 | P.PN ---
Subjective Progress Note Date: 08/25/17 Principal diagnosis: PPD #1 VAVD Patient is doing well on day #1. She is ambulating and voiding without difficulty, her lochia is minimal. She is attempting to breast-feed and is pumping at the bedside. Infant remains in the special care nursery for observation for withdrawal symptoms, secondary to Suboxone maternal treatment. She states her pain is well-controlled that denies concerns today. Objective - Vital Signs Vital signs: Vital Signs Temp 98.4 F 08/24/17 23:52 Pulse 76 08/24/17 23:52 Resp 16 08/24/17 23:52 BP 127/85 08/24/17 23:52 Pulse Ox Intake & Output 08/24/17 08/25/17 08/25/17 18:59 06:59 18:59 Intake Total 75 Output Total 600 Balance -525 Weight 99.79 kg Intake: Oral 75 Output: Estimated Blood Loss 600 Other: # Voids 1 1 - Constitutional General appearance: Present: cooperative, no acute distress - Gastrointestinal Gastrointestinal Comment(s): uterus firm below the umbilicus General gastrointestinal: Present: soft - Psychiatric Psychiatric: Present: A&O x's 3, appropriate affect - Labs CBC & Chem 7: 08/24/17 06:04 Assessment and Plan (1) Term Narrative/Plan: continue routine PP care. delivery discussed today and questions answered. infant doing well Current Visit: Yes Status: Acute Code(s): Z34.80 - ENCOUNTER FOR SUPRVSN OF NORMAL , UNSP TRIMESTER SNOMED Code(s): 08669576 (2) Suboxone maintenance treatment complicating , antepartum Current Visit: Yes Status: Acute Code(s): O99.320 - DRUG USE COMPLICATING , UNSPECIFIED TRIMESTER; F11.20 - OPIOID DEPENDENCE, UNCOMPLICATED SNOMED Code(s): 400262977
[2017-08-25] MEDS: SUBUTEX 8 MG SL SCH ×2 (08:57→20:58)
[2017-08-25 23:58] VITALS: RESP 16; TEMP 98.1
[2017-08-26] MEDS: ACETAMINOPHEN TAB 325 MG TAB PO PRN ×2 (04:32→15:54)
--- NOTE | 2017-08-26 08:20 | P.DS ---
Providers Date of admission: 08/24/17 05:50 Expected date of discharge: 08/26/17 Attending physician: Diana Shaffer Primary care physician: Yina Barboza - Discharge Diagnosis(es) (1) Term Current Visit: Yes Status: Acute (2) Suboxone maintenance treatment complicating , antepartum Current Visit: Yes Status: Acute Hospital Course: This is a 32 yo at39 weeks EDC 08/31. she presents for IOL. she is a known subutex user. she was admitted and pitocin induction per protocol. she progressed and amniotomy was preformed, epidural was placed soon after this. she progressed to complete, and began pushing. she had poor maternal effort and NRFHTs therefore VAVD was preformed, infant was delivered with 1 pull and no pop offs were noted. infant has done well, time 1304, apgars 7-9. "gabriella" Her course has been uneventful and she is ready for d/c on this PPD 2. she is ambulating and voiding without difficulty, no n/v tolerating a regular diet. lochia is noted to be minimal. Patient Condition at Discharge: Good Plan - Discharge Summary New Discharge Prescriptions: No Action Pnv,Calcium 72/Iron/Folic Acid [ Plus Tablet] 1 tab PO DAILY Buprenorphine HCl [Subutex] 4 mg SL BID Sertraline [Zoloft] 50 mg PO DAILY Discharge Medication List Buprenorphine HCl [Subutex] 4 mg SL BID 02/18/17 [History] Pnv,Calcium 72/Iron/Folic Acid [ Plus Tablet] 1 tab PO DAILY 02/18/17 [ History] Sertraline [Zoloft] 50 mg PO DAILY 02/18/17 [History] Follow up Appointment(s)/Referral(s): Diana Shaffer DO [Doctor of Osteopathic Medicine] - 4 Weeks
[2017-08-26] MEDS: SUBUTEX 8 MG SL SCH (09:11)
[2017-08-26] MEDS: IBUPROFEN 600 MG TAB PO PRN (09:11)
[2017-08-26] MEDS: SENNOSIDES-DOCUSATE SODIUM 1 EACH TAB PO SCH (10:01)
[2017-08-26] MEDS: SERTRALINE 50 MG TAB PO SCH (10:04)
[2017-08-26] MEDS: PRENATAL VIT-IRON-FOLIC ACID 1 EACH CAP PO SCH (10:04)
[2017-08-26 17:44] VITALS: BP 128/82; PULSE 80
== END 2017-08-26 17:30 | disposition home or self-care (01) | DRG 775 ==
LOC: 4FBP 05:50
PROVIDERS: ADMIT Obstetrics & Gynecology Obstetrics; ATTEND Obstetrics & Gynecology Obstetrics
PROC: 10D07Z6 Extraction of Products of Conception, Vacuum, Via Natural or Artificial Opening (ICD-10-PCS; principal; 2017-08-24)
PROC: 00HU33Z Insertion of Infusion Device into Spinal Canal, Percutaneous Approach (ICD-10-PCS; 2017-08-24)
PROC: 3E0R3BZ Introduction of Anesthetic Agent into Spinal Canal, Percutaneous Approach (ICD-10-PCS; 2017-08-24)
PROC: 3E033VJ Introduction of Other Hormone into Peripheral Vein, Percutaneous Approach (ICD-10-PCS; 2017-08-24)
PROC: 10907ZC Drainage of Amniotic Fluid, Therapeutic from Products of Conception, Via Natural or Artificial Opening (ICD-10-PCS; 2017-08-24)
DX: O99.324 Drug use complicating childbirth (principal); F11.20 Opioid dependence, uncomplicated; O16.4 Unspecified maternal hypertension, complicating childbirth; I10 Essential (primary) hypertension; O77.0 Labor and delivery complicated by meconium in amniotic fluid; Z37.0 Single live birth; Z3A.39 39 weeks gestation of pregnancy; O99.334 Smoking (tobacco) complicating childbirth; F17.200 Nicotine dependence, unspecified, uncomplicated; O99.344 Other mental disorders complicating childbirth; F32.9 Major depressive disorder, single episode, unspecified; F41.9 Anxiety disorder, unspecified; O99.62 Diseases of the digestive system complicating childbirth; K21.9 Gastro-esophageal reflux disease without esophagitis; Z79.899 Other long term (current) drug therapy; Z90.49 Acquired absence of other specified parts of digestive tract
CPT/HCPCS: 59025; 80306; 85025; 88307; 99213

== ENCOUNTER → 2017-10-26 | Outpatient (CLI) | payer OTHER ==
[2017-10-26 14:52] LABS: Basophils % (A) 0 %; Eosinophils # (A) 0.3 k/uL (0-0.7); Eosinophils % (A) 5 %; HCT 37.4 % (34.0-46.0); HGB 13.1 gm/dL (11.4-16.0); Lymphocytes # (A) 2.5 k/uL (1.0-4.8); Lymphocytes % (A) 35 %; MCH 29.1 pg (25.0-35.0); MCHC 34.9 g/dL (31.0-37.0); MCV 83.3 fL (80.0-100.0); Mean Platelet Volume 7.3; Monocytes # (A) 0.3 k/uL (0-1.0); Monocytes % (A) 5 %; Neutrophils # (A) 3.8 k/uL (1.3-7.7); Neutrophils % (A) 54 %; Platelet Count 262 k/uL (150-450); RBC 4.49 m/uL (3.80-5.40); RDW 12.3 % (11.5-15.5); WBC 6.9 k/uL (3.8-10.6)
== END | disposition home or self-care (01) ==
LOC: LABPAT 14:01
PROVIDERS: ATTEND Obstetrics & Gynecology Obstetrics
DX: Z01.812 Encounter for preprocedural laboratory examination (principal)
CPT/HCPCS: 36415; 85025

== ENCOUNTER 2017-11-01 07:30 | Day surgery (SDC) | payer OTHER ==
[2017-10-27 10:37] VITALS: BMI 33.3
[~2017-11-01 07:30] MED LIST: ACETAMINOPHEN IV (For NPO) 1,000 MG in EMPTY BAG 1 BAG IVPB ONE; DEXAMETHASONE SOD PHOSPHATE 10 MG/ML 1 ML VIAL IV ONE; LACTATED RINGERS 1,000 ML IV SCH; MIDAZOLAM 2 MG/2 ML VIAL IV PRN; SCOPOLAMINE 1.5MG/72HR PATCH TRANSDERM ONE; ceFAZolin IN SWFI 2 GM/20 ML SYRINGE IVP ONE; fentaNYL (PF) 50 MCG/ML 2 ML AMP IV PRN
[2017-11-01] MEDS: ONDANSETRON 4 MG/2 ML VIAL IVP ONE ×2 (08:18→10:00)
[2017-11-01] MEDS ORDERED: LIDOCAINE 1% 20 ML VIAL (10MG/ML) FOR IV START INTRADERMA ONE (08:18)
[2017-11-01] MEDS ORDERED: fentaNYL (PF) 50 MCG/ML 2 ML AMP ONE (09:44)
[2017-11-01] MEDS ORDERED: GLYCOPYRROLATE 0.2 MG/ML 2 ML VIAL ONE (09:44)
[2017-11-01] MEDS ORDERED: NEOSTIGMINE 1 MG/ML 10 ML VIAL ONE (09:44)
[2017-11-01] MEDS ORDERED: SUCCINYLCHOLINE CHLORIDE 100 MG/5 ML SYR IV ONE (09:44)
[2017-11-01] MEDS ORDERED: ROCURONIUM BROMIDE 10 MG/ML 10 ML VIAL IV ONE (09:44)
[2017-11-01] MEDS ORDERED: LIDOCAINE 1% INJ 10MG/ML (20 ML MDV) ONE (09:44)
[2017-11-01] MEDS ORDERED: MIDAZOLAM 2 MG/2 ML VIAL ONE (09:44)
[2017-11-01] MEDS ORDERED: KETOROLAC 30 MG/ML 1 ML VIAL ONE (09:44)
[2017-11-01] MEDS ORDERED: PROPOFOL 10 MG/ML 20 ML VIAL IV ONE (09:44)
[2017-11-01] MEDS ORDERED: BUPIVACAINE (PF) 0.25% 30 ML VIAL SQ ONE (10:02)
[2017-11-01] MEDS ORDERED: LIDOCAINE 2% GEL 5 ML TUBE TOPICAL ONE (10:07)
--- NOTE | 2017-11-01 10:29 | P.OP ---
Date of Procedure: 11/01/17 Preoperative Diagnosis: Undesired fertility, family status complete Postoperative Diagnosis: Same Procedure(s) Performed: Left prostatic tubal ligation with Falope-Rings Anesthesia: ADRIEL Surgeon: Diana Shaffer Estimated Blood Loss (ml): 5 IV fluids (ml): 500 Urine output (ml): 100 Pathology: none sent Condition: stable Disposition: PACU Indications for Procedure: Patient requests Operative Findings: Globular uterus with some inflammatory changes around bilateral adnexa and ovaries appeared normal and the upper abdomen appears normal Description of Procedure: Patient was seen in the preoperative suite and informed consent was obtained risks reviewed including but not limited to infection, bleeding, damage to bladder, bowel, ureteric injury. Patient stated understanding and wished to have the tubal ligation done. Patient was taken operating suite where general anesthesia was obtained without difficulty by the anesthesia department. She was then prepped and draped in normal sterile fashion in the dorsal lithotomy position. A red rubber catheter was then used to drain the bladder of clear yellow urine. A weighted speculumthe posterior vaginal wall. She'll of the cervix was visualized and grasped with single-tooth tenaculum and acorn uterine manipulator was advanced into the cervix as a means to maneuver the uterus throughout the procedure. Attention was then turned to the patient's abdomen and the umbilical fold a small incision is made through this incision the Veress needle was placed. Once the Veress needle was deemed to be in the appropriate position of the drop in CO2 pressure with insufflation of CO2 gas CO2 insufflation was allowed to occur. 3 L of gas or used to obtain pneumoperitoneum. At this point the incision was elongated slightly and a 5 mm trocar and sleeve were placed through the skin incision toward the pneumoperitoneum the above-noted findings were visualized. At this point additional port site in the right lower quadrant was made this is an 8 mm port and external direct visualization. The Falope ring applicator was then introduced into the abdomen the left fallopian tube was grasped with a Falope ring applicator and it was noted that the ring did slip slightly attention was then turned to patient's left fallopian tube easily right fallopian tube which was grasped with a appropriate aftercare and operated according to line person's instructions. A small amount of bleeding was noted on this right fallopian tube therefore the Kleppinger was introduced and cautery was used to obtain hemostasis bilaterally. Given the poor placement of the Falope ring applicator on the patient's left fallopian tube cautery was used to transect the fallopian tube in addition. Hemostasis was appreciated after this was completed all instruments were then removed from the patient's abdomen. Incisions were closed with 4-0 Vicryl in a subcuticular fashion. Steri-Strips and sterile dressings were applied. All counts are correct 2 patient tolerated procedure well and was taken to recovery room awake in stable condition.
[2017-11-01 10:53] VITALS: TEMP 97.4
[2017-11-01] MEDS ORDERED: diphenhydrAMINE 50 MG/ML 1 ML VIAL IVP ONE (10:53)
[2017-11-01] MEDS: MEPERIDINE 50 MG/ML SYRINGE IVP ONE ×2 (11:03→11:13)
[2017-11-01 11:29] VITALS: RESP 20
[2017-11-01 12:04] VITALS: BP 138/91; PULSE 61
== END 2017-11-01 12:07 | disposition home or self-care (01) ==
LOC: OR 07:30
PROVIDERS: ATTEND Obstetrics & Gynecology Obstetrics
DX: Z30.2 Encounter for sterilization (principal); I10 Essential (primary) hypertension; Z79.891 Long term (current) use of opiate analgesic; F17.200 Nicotine dependence, unspecified, uncomplicated; M79.7 Fibromyalgia
CPT/HCPCS: 58671; 81025; J2250; J1200; J1100; J2710; J2175; J2405; J2001; J3010; J1885; J0330; J2704; J0690

== ENCOUNTER 2018-04-08 12:23 | Emergency (ER) | payer OTHER ==
[2018-04-08 12:39] VITALS: RESP 18
--- NOTE | 2018-04-08 14:25 | ED ---
Eye Problem HPI - General Chief complaint: Eye Problems Stated complaint: Eye Problems Time Seen by Provider: 04/08/18 12:51 Source: patient Mode of arrival: ambulatory Limitations: no limitations - Related Data Home Medications Medication Instructions Recorded Confirmed Sertraline [Zoloft] 50 mg PO HS 02/18/17 04/08/18 Buprenorphine HCl/Naloxone HCl 1 film PO DAILY 04/08/18 04/08/18 [Suboxone 8 mg-2 mg Sl Film] Lisinopril-Hctz 20-25 mg 1 tab PO DAILY 04/08/18 04/08/18 [Zestoretic 20-25] Allergies Allergy/AdvReac Type Severity Reaction Status Date / Time No Known Allergies Allergy Verified 04/08/18 13:36 Review of Systems ROS Statement: Those systems with pertinent positive or pertinent negative responses have been documented in the HPI. ROS Other: All systems not noted in ROS Statement are negative. Past Medical History Past Medical History: Hypertension History of Any Multi-Drug Resistant Organisms: None Reported Past Surgical History: Cholecystectomy, Tubal Ligation Past Psychological History: Anxiety, Depression Smoking Status: Current every day smoker Past Alcohol Use History: None Reported Past Drug Use History: None Reported - Past Family History Father Family Medical History: Diabetes Mellitus, Hypertension, Myocardial Infarction ( [place]) Mother Family Medical History: Cancer General Exam Limitations: no limitations General appearance: alert, in no apparent distress Head exam: Present: atraumatic, normocephalic, normal inspection Eye exam: Present: normal appearance, PERRL, EOMI. Absent: scleral icterus, conjunctival injection, periorbital swelling ENT exam: Present: normal exam, mucous membranes moist Neck exam: Present: normal inspection. Absent: tenderness, meningismus, lymphadenopathy Respiratory exam: Present: normal lung sounds bilaterally. Absent: respiratory distress, wheezes, rales, rhonchi, stridor Cardiovascular Exam: Present: regular rate, normal rhythm, normal heart sounds. Absent: systolic murmur, diastolic murmur, rubs, gallop, clicks GI/Abdominal exam: Present: soft, normal bowel sounds. Absent: distended, tenderness, guarding, rebound, rigid Extremities exam: Present: normal inspection, full ROM, normal capillary refill. Absent: tenderness, pedal edema, joint swelling, calf tenderness Back exam: Present: normal inspection Neurological exam: Present: alert, oriented X3, CN II-XII intact Psychiatric exam: Present: normal affect, normal mood Skin exam: Present: warm, dry, intact, normal color. Absent: rash Course Vital Signs 04/08/18 04/08/18 12:36 14:25 Temperature 97.9 F Pulse Rate 72 56 L Respiratory 18 18 Rate Blood Pressure 136/89 132/91 O2 Sat by Pulse 91 L 98 Oximetry - Reevaluation(s) Reevaluation #1: 04/08/18 15:03 Medical records thoroughly reviewed as well as transferring paperwork Reevaluation #2: 04/08/18 15:04 spoke patient at length regarding his physical exam findings as well as other findings. Physical exam findings currently in the office as well as symptoms. They will and do agree to follow-up as an outpatient regarding neurological evaluation and ophthalmology evaluation and possible LP and MRI Medical Decision Making - Medical Decision Making 30 female the ER for evaluation of eyelet riveter with no neurological findings , patient will follow-up with eyelet riveter and neurologist, CT brain here in the emergency room is negative, patient will also and can be also scheduled for outpatient MRI. - Radiology Data Radiology results: report reviewed (CT brain is negative for acute disease), image reviewed Disposition Clinical Impression: Headache, Pain, eye, left Disposition: HOME SELF-CARE Condition: Good Instructions: Acute Headache (ED) Is patient prescribed a controlled substance at d/c from ED?: No Referrals: Jacy Ackerman MD [STAFF PHYSICIAN] - 1-2 days Hang Mallory MD [STAFF PHYSICIAN] - 1-2 days
--- NOTE | 2018-04-08 14:48 | CT ---
EXAMINATION TYPE: CT brain wo con DATE OF EXAM: 04/08/2018 COMPARISON: January 25, 2012 HISTORY: Headache and eye pain. CT DLP: 915.[address] of the brain was performed. The ventricles, basal cisterns and sulci overlying the cerebral convexities demonstrate a normal appe arance. There is no evidence for intracranial hemorrhage or sulcal effacement. No mass effects are seen. Osseous calvarium is intact. Mild mucosal thickening left maxillary sinus. If symptoms persist consider MRI as clinically warranted. IMPRESSION: 1. No acute intracranial process is seen at this time.
[2018-04-08 15:18] VITALS: BP 129/94; PULSE 57; TEMP 97.7
== END 2018-04-08 15:13 | disposition home or self-care (01) ==
LOC: EC 12:23
DX: H57.11 Ocular pain, right eye (principal); R51 Headache; I10 Essential (primary) hypertension; F32.9 Major depressive disorder, single episode, unspecified; F41.9 Anxiety disorder, unspecified; F17.200 Nicotine dependence, unspecified, uncomplicated; Z79.899 Other long term (current) drug therapy
CPT/HCPCS: 70450; 99283

== ENCOUNTER → 2018-05-04 | Outpatient (CLI) | payer OTHER ==
--- NOTE | 2018-05-04 09:43 | MR ---
EXAMINATION TYPE: MR brain wo con DATE OF EXAM: 05/04/2018 COMPARISON: 04/08/2018 CT brain and MRI brain dated 09/28/2016 HISTORY: Papilledema TECHNIQUE: Multiplanar, multisequence images of the brain and brainstem is performed without intravenous contras t. FINDINGS: In comparison to the prior exam of 09/28/2016 there is new undulation of the optic nerves, l eft greater than right with increased T2 hyperintensity surrounding the optic nerves that can be seen in intracranial hypertension. There is no evidence of hydrocephalus or transtentorial herniation of the brain. There is ectopia of the cerebellar tonsils measuring 3 mm. Partially empty sella turcica i s also visualized. Extraocular muscles and lenses are symmetric. Globes maintain a rounded contour. Diffusion weighted images demonstrate no evidence of a recent infarct or other diffusion abnormality. There is no extra-axial fluid collection or significant white matter signal abnormality. The ventr icular system and cisternal spaces are normal in size and appearance. The brain volume is age approp riate. Midline structures demonstrate normal morphology. The craniocervical junction appears within normal limits. There is minimal mucosal thickening of the ethmoid and maxillary sinuses. Remaining paranasal sinuses and mastoid air cells appear well aerated. The dural venous sinuses appear patent. Intraparo tid lymph nodes are noted bilaterally. Left vertebral artery is dominant. IMPRESSION: Findings that suggest intracranial hypertension such as prominent subarachnoid space arou nd the optic nerves and partially empty sella turcica. 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
== END | disposition home or self-care (01) ==
LOC: RADMRIMAIN 08:11
PROVIDERS: ATTEND Family Medicine
DX: G93.5 Compression of brain (principal); H47.10 Unspecified papilledema
CPT/HCPCS: 70551

== ENCOUNTER → 2018-09-07 | Outpatient (CLI) | payer OTHER ==
[2018-09-07 10:44] LABS: Basophils % (A) 1 %; Eosinophils # (A) 0.2 k/uL (0-0.7); Eosinophils % (A) 3 %; HCT 40.7 % (34.0-46.0); HGB 13.5 gm/dL (11.4-16.0); Lymphocytes # (A) 1.3 k/uL (1.0-4.8); Lymphocytes % (A) 18 %; MCH 28.7 pg (25.0-35.0); MCHC 33.1 g/dL (31.0-37.0); MCV 86.8 fL (80.0-100.0); Mean Platelet Volume 7.3; Monocytes # (A) 0.3 k/uL (0-1.0); Monocytes % (A) 5 %; Neutrophils # (A) 5.3 k/uL (1.3-7.7); Neutrophils % (A) 73 %; Platelet Count 415 k/uL (150-450); RBC 4.69 m/uL (3.80-5.40); RDW 12.5 % (11.5-15.5); WBC 7.3 k/uL (3.8-10.6)
[2018-09-07 10:46] LABS: Appearance,Urine Cloudy (Clear); Bacteria,Urine Rare /hpf; Bilirubin,Urine Negative (Negative); Blood,Urine Negative (Negative); Color,Urine Yellow; Glucose,Urine (UA) Negative (Negative); Ketones,Urine Negative (Negative); Leukocyte Esterase,Urine Small (Negative); Mucus,Urine Many /hpf; Nitrite,Urine Negative (Negative); Protein,Urine Trace (Negative); Specific Gravity,Urine 1.013 (1.001-1.035); Squamous Epithelial Cell,Urine 15 /hpf (0-4); Urobilinogen,Urine <2.0 mg/dL (<2.0); WBC,Urine 13 /hpf (0-5)
[2018-09-07 10:55] LABS: INR 0.9 (<1.2); Partial Thromboplastin Time 25.7 sec (22.0-30.0); Prothrombin Time 10.1 sec (9.0-12.0)
[2018-09-07 16:34] LABS: Albumin/Globulin Ratio 2.11 (1.60-3.17); Anion Gap 6.6 mmol/L (4.00-12.00); Calcium 8.9 mg/dL (8.7-10.3); Carbon Dioxide 27.4 mmol/L (21.6-31.8); Globulin 1.9 g/dL (1.6-3.3); Potassium 3.9 mmol/L (3.5-5.5); Total Bilirubin 0.3 mg/dL (0.2-1.2); Total Protein 5.9 g/dL (6.2-8.2)
== END | disposition home or self-care (01) ==
LOC: LABWHC1 09:39
PROVIDERS: ATTEND Neurological Surgery
DX: Z01.818 Encounter for other preprocedural examination (principal); Z01.812 Encounter for preprocedural laboratory examination; G93.5 Compression of brain
CPT/HCPCS: 36415; 80053; 81001; 83516; 85025; 85610; 85730; 93005

== ENCOUNTER → 2019-05-12 | Outpatient (CLI) | payer OTHER ==
[~2019-05-12] MED LIST changes: -ACETAMINOPHEN IV (For NPO) 1,000 MG in EMPTY BAG 1 BAG IVPB ONE; -DEXAMETHASONE SOD PHOSPHATE 10 MG/ML 1 ML VIAL IV ONE; +DOBUTamine DRIP for NUC MED 500 MG in DEXTROSE/WATER 1 250ML.BAG IV ONE; -LACTATED RINGERS 1,000 ML IV SCH; -MIDAZOLAM 2 MG/2 ML VIAL IV PRN; -SCOPOLAMINE 1.5MG/72HR PATCH TRANSDERM ONE; -ceFAZolin IN SWFI 2 GM/20 ML SYRINGE IVP ONE; -fentaNYL (PF) 50 MCG/ML 2 ML AMP IV PRN
--- NOTE | 2019-05-12 13:08 | ECHOS ---
STRESS ECHOCARDIOGRAM DATE OF SERVICE: 05/12/2019 INDICATIONS: Chest pain. MEDICATIONS: Toprol, Zoloft, HCTZ, Abilify. BASELINE HEART RATE: 74 BASELINE BLOOD PRESSURE: 100/63 MAXIMUM HEART RATE: 154 MAXIMUM BLOOD PRESSURE: 173/75 85% MPHR: 159 100% MPHR: 187 METS: MAXIMUM STAGE REACHED: TOTAL EXERCISE TIME: CLINICAL INFORMATION: This is a dobutamine stress echo. This patient tried to walk, but did not get a heart rate responsive was switched over to dobutamine. Baseline EKG revealed normal sinus rhythm with one isolated PVC and no acute changes. With dobutamine administration, she developed some ventricular ectopy initially and subsequently at a heart rate of about 154 beats per minute, she complained of throbbing in the chest and headache and did not wish to proceed and therefore I recommended that we stop the dobutamine and infusion. She did not receive any atropine. Her maximal heart rate was 154 beats per minute which is almost 85% of predicted maximal. EKG did not reveal any ST-segment changes to indicate ischemia. Even though she achieved 83% of her predicted maximal heart rate, I would call this as an unremarkable dobutamine stress test by EKG criteria with a fairly decent heart rate. Baseline echo images revealed a normal wall motion and wall thickening. With dobutamine administration, there was progressive increase in contractility noted without any evidence to suggest ischemia. Maximal heart rate was 154 beats per minute which is almost 85% of predicted maximal. This is therefore a negative dobutamine stress echo with good contractility noted. FINAL IMPRESSION: 1. Unremarkable dobutamine stress test by EKG criteria with heart rate close to 85%. The patient was distressed and sobbing because of sensation of throbbing in the chest and therefore dobutamine infusion was stopped and atropine not given. 2. Normal dobutamine stress echocardiogram at a maximal heart rate of nearly 85% of predicted maximal. No evidence to suggest ischemia. MMODL / IJN: [id number] /
== END | disposition home or self-care (01) ==
LOC: RADNMMAIN 09:40
PROVIDERS: ATTEND Family Medicine
DX: R07.89 Other chest pain (principal)
CPT/HCPCS: 93351; J1250

== ENCOUNTER → 2020-01-29 | Outpatient (CLI) | payer OTHER ==
--- NOTE | 2020-01-29 16:54 | US ---
EXAMINATION TYPE: US venous doppler duplex LE LT DATE OF EXAM: 01/29/2020 4:42 PM COMPARISON: NONE CLINICAL HISTORY: Left leg swelling R22.42. Left leg swelling SIDE PERFORMED: Left TECHNIQUE: The lower extremity deep venous system is examined utilizing real time linear array sonog marjorie with graded compression, doppler sonography and color-flow sonography. VESSELS IMAGED: External Iliac Vein (EIV) Common Femoral Vein Deep Femoral Vein Greater Saphenous Vein * Femoral Vein Popliteal Vein Small Saphenous Vein * Proximal Calf Veins (* superficial vessels) Left Leg: Appears negative for DVT Grayscale, color doppler, spectral doppler imaging performed of the deep veins of the left lower extr emity. There is normal flow, compressibility, vascular waveforms. IMPRESSION: No ultrasound evidence for acute DVT in the left lower extremity.
== END | disposition home or self-care (01) ==
LOC: RADUSWWP 16:21
PROVIDERS: ATTEND Family Medicine
DX: R22.42 Localized swelling, mass and lump, left lower limb (principal)

== ENCOUNTER → 2021-11-19 | Outpatient (CLI) | payer OTHER ==
--- NOTE | 2021-11-19 18:55 | SFUN ---
SLEEP CENTER FOLLOW UP NOTE DATE OF SERVICE: 11/19/2021 36-year-old lady has been followed in Sleep Center for treatment of obstructive sleep apnea-hypopnea syndrome. Home sleep apnea test at the end of June of 2021 showed moderate obstructive sleep apnea-hypopnea syndrome with apnea-hypopnea index 18.3, and oxygen desaturation to 61%. Oxygen level was below normal for 27 minutes. I discussed results of home sleep apnea test with the patient in detail. Subsequently, she had a Pap titration and I ordered for her CPAP unit. Today is her first visit after she started to use CPAP equipment. She feels better with the CPAP, but still has some problems related to mask fitting and pressure. [place] Sleepiness Scale today is 6 which is in normal range. I checked CPAP unit. It is in automatic regimen. Range of the pressure 5-15, 95% pressures, 9.8 cm of water, maximal pressure of 10.8 cm of water, usage is 63% of nights and 40% of nights more than 4 hours. Leak is 8.5 L/minute, 95%, which is normal range. Apnea-hypopnea index is 1.8 which is normal. I discussed results of reading information from the machine with the patient in detail. I discussed with the patient the proper position of the machine and other options of different mask. MEDICATIONS: Zoloft, Abilify, Suboxone, metoprolol hydrochlorothiazide. PHYSICAL EXAMINATION: GENERAL: Patient in no distress. BP 114/79, HR 68, respiratory rate 12, weight 238.6, temperature 96.5, oxygen saturation at room air 97%. Oropharynx: Extremely low position of soft palate, Mallampati 4. NECK: Supple, no JVD. Thyroid is not palpable. LUNGS: Clear to percussion and to auscultation. Good air exchange. No wheezing or rhonchi. HEART: S1, S2 regular. No murmurs, gallops, or rubs. ABDOMEN: Slightly obese. Soft and nontender. Bowel sounds are present. No organomegaly appreciated. EXTREMITIES: No clubbing or cyanosis. CALL CENTRE SUPERVISOR: Awake, alert, and oriented X3. Cranial nerves 2 to 7 intact. There is no fasciculation or atrophy. noted. No focal deficits observed. IMPRESSION: 1. Obstructive sleep apnea-hypopnea syndrome in moderate range. The patient started to use machine close to borderline compliance, has some problems related to the mask. 2. Hypertension. 3. Depression. 4. Obesity. 5. Status post cholecystectomy. 6. Status post decompression brain surgery. 7. Status post tubal ligation. PLAN: 1. We will try nasal pillow mask with a chin strap. 2. Patient will continue to use PAP equipment every night for the whole night. 3. Sleep hygiene with regular time in bed for at least 7-1/2 to 8 hours. 4. Precautions related to driving. No driving if feeling sleepiness. 5. I will maintain all necessary prescription for PAP supplies including mask, tube, filters. 6. Watching weight. 7. Follow-up visit in 2 months or earlier if patient has any problems. Thank you very much for allowing me to participate in management of your patient. Sincerely, Manolo Perez MD, PhD, FAASM Diplomat of [place] [employer] Sleep Medicine Board of [place] [employer] [facility] [place] MMODL / IJN: [id number] /
== END ==
LOC: SLEEP 10:18
PROVIDERS: ATTEND Internal Medicine
DX: G47.33 Obstructive sleep apnea (adult) (pediatric) (principal); I10 Essential (primary) hypertension; F32.A Depression, unspecified; E66.9 Obesity, unspecified; Z99.89 Dependence on other enabling machines and devices; Z90.49 Acquired absence of other specified parts of digestive tract; Z98.890 Other specified postprocedural states; Z98.51 Tubal ligation status

== ENCOUNTER 2022-01-05 19:59 | Emergency (ER) | payer OTHER ==
[2022-01-05] MEDS ORDERED: AMPICILLIN-SULBACTAM 3 GM in SODIUM CHLORIDE 0.9% 100 ML IVPB STA (22:03)
[2022-01-05] MEDS ORDERED: KETOROLAC 15 MG/ML 1 ML VIAL IVP STA (22:03)
[2022-01-05] MEDS ORDERED: DEXAMETHASONE SOD PHOSPHATE 10 MG/ML 1 ML VIAL IVP STA (22:03)
[2022-01-05] MEDS ORDERED: SODIUM CHLORIDE 0.9% 500 ML 500 ML IV STA (22:03)
[2022-01-05 22:26] LABS: Basophils % (A) 0 %; Eosinophils # (A) 0.2 k/uL (0-0.7); Eosinophils % (A) 3 %; HCT 38.9 % (34.0-46.0); HGB 13.3 gm/dL (11.4-16.0); Lymphocytes # (A) 2.1 k/uL (1.0-4.8); Lymphocytes % (A) 26 %; MCH 30.4 pg (25.0-35.0); MCHC 34.2 g/dL (31.0-37.0); Mean Platelet Volume 7.6; Monocytes # (A) 0.4 k/uL (0-1.0); Monocytes % (A) 5 %; Neutrophils # (A) 5.2 k/uL (1.3-7.7); Neutrophils % (A) 65 %; Platelet Count 268 k/uL (150-450); RBC 4.37 m/uL (3.80-5.40); RDW 12.6 % (11.5-15.5); WBC 7.9 k/uL (3.8-10.6)
--- NOTE | 2022-01-05 22:26 | ED ---
ENT HPI - General Chief complaint: Dental/Oral Stated complaint: Infection in jaw Time Seen by Provider: 01/05/22 21:46 Source: patient, RN notes reviewed, old records reviewed Mode of arrival: ambulatory Limitations: no limitations - History of Present Illness Initial comments: This is a 36-year-old female to the emergency department for evaluation patient presents today for evaluation regards to severe tooth pain right rear tooth pain and tenderness. Tooth fracture. Patient has seen her dentist. Patient's evaluation showing need for tooth extraction. Patient does have some swelling of right jaw. She has no significant medical history currently aside from antibiotics taking no medications MD complaint: tooth pain -: days(s) Location: tooth # Severity: severe Severity scale (1-10): 8 Quality: stabbing, aching Consistency: constant Improves with: none Worsens with: none Context- Dental: history of dental caries, poor dental care Associated Symptoms: toothache - Related Data Home Medications Medication Instructions Recorded Confirmed Buprenorphine HCl/Naloxone HCl 1 film PO BID 04/08/18 01/05/22 [Suboxone 8 mg-2 mg Sl Film] ARIPiprazole [Abilify] 5 mg PO HS 01/05/22 01/05/22 Metoprolol Succinate (ER) [Toprol 50 mg PO DAILY 01/05/22 01/05/22 Xl] Ondansetron Odt [Zofran Odt] 4 mg PO DAILY PRN 01/05/22 01/05/22 Sertraline [Zoloft] 150 mg PO DAILY 01/05/22 01/05/22 hydroCHLOROthiazide 25 mg PO DAILY 01/05/22 01/05/22 methocarbamoL [Robaxin-750] 750 mg PO TID PRN 01/05/22 01/05/22 Allergies Allergy/AdvReac Type Severity Reaction Status Date / Time No Known Allergies Allergy Verified 01/05/22 23:08 Review of Systems ROS Statement: Those systems with pertinent positive or pertinent negative responses have been documented in the HPI. ROS Other: All systems not noted in ROS Statement are negative. Past Medical History Past Medical History: Hypertension History of Any Multi-Drug Resistant Organisms: None Reported Past Surgical History: Cholecystectomy, Tubal Ligation Past Psychological History: Anxiety, Depression Smoking Status: Current every day smoker Past Alcohol Use History: None Reported Past Drug Use History: None Reported - Past Family History Father Family Medical History: Diabetes Mellitus, Hypertension, Myocardial Infarction ([place]) Mother Family Medical History: Cancer General Exam Limitations: no limitations General appearance: alert, in no apparent distress Head exam: Present: atraumatic, normocephalic, normal inspection Eye exam: Present: normal appearance, PERRL, EOMI. Absent: scleral icterus, conjunctival injection, periorbital swelling ENT exam: Present: normal exam, mucous membranes moist Neck exam: Present: normal inspection, other (Patient does have significant dental caries. Right rear tooth fracture with tenderness and swelling. No noted abscess). Absent: tenderness, meningismus, lymphadenopathy Respiratory exam: Present: normal lung sounds bilaterally. Absent: respiratory distress, wheezes, rales, rhonchi, stridor Cardiovascular Exam: Present: regular rate, normal rhythm, normal heart sounds. Absent: systolic murmur, diastolic murmur, rubs, gallop, clicks GI/Abdominal exam: Present: soft, normal bowel sounds. Absent: distended, tenderness, guarding, rebound, rigid Extremities exam: Present: normal inspection, full ROM, normal capillary refill. Absent: tenderness, pedal edema, joint swelling, calf tenderness Back exam: Present: normal inspection Neurological exam: Present: alert, oriented X3, CN II-XII intact Psychiatric exam: Present: normal affect, normal mood Skin exam: Present: warm, dry, intact, normal color. Absent: rash Course Vital Signs 01/05/22 20:36 Temperature 98.5 F Pulse Rate 86 Respiratory 20 Rate Blood Pressure 131/92 O2 Sat by Pulse 98 Oximetry - Reevaluation(s) Reevaluation #1: 01/05/22 23:00 Medical records reviewed Reevaluation #2: 01/05/22 23:00 Patient informed results and questions are answered Reevaluation #3: 01/05/22 23:00 Patient feels significantly improved Medical Decision Making - Medical Decision Making 36 female presents today for evaluation. Patient is presenting for evaluation of tooth pain jaw pain. Patient is given IV antibiotics here in the ER to follow back up with her dentist if she did see today and started on antibiotics. Patient will see for further tooth extraction and treatment - Lab Data Result diagrams: 01/05/22 22:14 01/05/22 22:14 Lab Results 01/05/22 01/05/22 Range/Units 22:14 22:14 WBC 7.9 (3.8-10.6) k/uL RBC 4.37 (3.80-5.40) m/uL Hgb 13.3 (11.4-16.0) gm/dL Hct 38.9 (34.0-46.0) % MCV 89.0 (80.0-100.0) fL MCH 30.4 (25.0-35.0) pg MCHC 34.2 (31.0-37.0) g/dL RDW 12.6 (11.5-15.5) % Plt Count 268 (150-450) k/uL MPV 7.6 Neutrophils % 65 % Lymphocytes % 26 % Monocytes % 5 % Eosinophils % 3 % Basophils % 0 % Neutrophils # 5.2 (1.3-7.7) k/uL Lymphocytes # 2.1 (1.0-4.8) k/uL Monocytes # 0.4 (0-1.0) k/uL Eosinophils # 0.2 (0-0.7) k/uL Basophils # 0.0 (0-0.2) k/uL Sodium 136 L (137-145) mmol/L Potassium 3.3 L (3.5-5.1) mmol/L Chloride 101 (98-107) mmol/L Carbon Dioxide 29 (22-30) mmol/L Anion Gap 6 mmol/L BUN 10 (7-17) mg/dL Creatinine 0.66 (0.52-1.04) mg/dL Est GFR (CKD-EPI)AfAm >90 (>60 ml/min/1.73 sqM) Est GFR (CKD-EPI)NonAf >90 (>60 ml/min/1.73 sqM) Glucose 93 (74-99) mg/dL Calcium 9.4 (8.4-10.2) mg/dL Phosphorus 3.5 (2.5-4.5) mg/dL Magnesium 1.9 (1.6-2.3) mg/dL Total Bilirubin 0.5 (0.2-1.3) mg/dL AST 42 H (14-36) U/L ALT 32 (4-34) U/L Alkaline Phosphatase 97 (38-126) U/L Total Protein 7.1 (6.3-8.2) g/dL Albumin 4.4 (3.5-5.0) g/dL Disposition Clinical Impression: Toothache, Dental abscess, Dental caries, Fracture of tooth Disposition: HOME SELF-CARE Condition: Good Instructions (If sedation given, give patient instructions): Dental Abscess (ED), Toothache (ED) Is patient prescribed a controlled substance at d/c from ED?: No Referrals: Yina Barboza MD [Primary Care Provider] - 1-2 days Time of Disposition: 23:20
[2022-01-05 22:36] LABS: ALT 32 U/L (4-34); AST 42 U/L (14-36); African American GFR (CKD) >90 (>60 ml/min/1.73 sqM); Albumin 4.4 g/dL (3.5-5.0); Alkaline Phosphatase 97 U/L (38-126); Anion Gap 6 mmol/L; Blood Urea Nitrogen 10 mg/dL (7-17); Calcium 9.4 mg/dL (8.4-10.2); Carbon Dioxide 29 mmol/L (22-30); Chloride 101 mmol/L (98-107); Glucose 93 mg/dL (74-99); Magnesium 1.9 mg/dL (1.6-2.3); Non-African American GFR(CKD) >90 (>60 ml/min/1.73 sqM); Phosphorus 3.5 mg/dL (2.5-4.5); Potassium 3.3 mmol/L (3.5-5.1); Sodium 136 mmol/L (137-145); Total Bilirubin 0.5 mg/dL (0.2-1.3); Total Protein 7.1 g/dL (6.3-8.2)
[2022-01-05] MEDS ORDERED: traMADol 50 MG STARTER PACK 3 TAB BTL PO STA (23:01)
[2022-01-05] MEDS ORDERED: POTASSIUM BICARBONATE/CIT AC 20 MEQ TABLET.EFF PO ONE (23:01)
[2022-01-05] MEDS ORDERED: ACET/COD 300 MG/30 MG STARTER PACK 6 TAB BTL PO STA (23:01)
[2022-01-06 00:29] VITALS: BP 124/87; PULSE 75; RESP 18; TEMP 98
== END 2022-01-06 00:25 | disposition home or self-care (01) ==
LOC: EC 19:59
DX: K02.9 Dental caries, unspecified (principal); K03.81 Cracked tooth; I10 Essential (primary) hypertension; F32.A Depression, unspecified; F41.9 Anxiety disorder, unspecified; F17.200 Nicotine dependence, unspecified, uncomplicated; Z79.899 Other long term (current) drug therapy
CPT/HCPCS: 99283; 96365; 96375 ×2; 36415; 80053; 83735; 84100; 85025; J1100; J0295; J1885

== ENCOUNTER → 2022-03-25 | Outpatient (CLI) | payer OTHER ==
--- NOTE | 2022-03-25 12:07 | P.PN ---
Subjective DATE: 03/25/2022 FOLLOW UP VISIT. Patient with obstructive sleep apnea hypopnea syndrome return to sleep center for follow-up visit. Information from previous visit have been reviewed. During previous visit patient was recommended to try nasal pillow mask, but she did not receive any nasal pillow mask secondary to insurance schedule for new mask. Patient cannot use nasal mask because of claustrophobic reactions Anthony sleepiness scale is 11. I checked information from PAP unit. PAP unit pressure 5-15 cm of water, average 11.2 cm H2O. Patient used CPAP only for a few nights. Leak is 7.4 l/m, which is in acceptable range. Apnea Hypopnea Index is 4.7, which is normal. MEDICATIONS:1. Abilify once in the evening 2. Zoloft once a day 3. Metoprolol once a day 4. Hydrochlorothiazide once a day 5. Suboxone twice a day During physical exam: GENERAL: A pleasant patient without any distress. VITAL SIGNS: BP 109/76, HR 80, RR 16 , weight 232.4, temperature 97.3, oxygen saturation at room air 97 % . HEENT: PERRLA, EOMI.low position of soft palate, Mallapati 4 . NECK: Supple. No JVD. LUNGS: Clear to percussion and to auscultation. Good air exchange. No wheezing or rhonchi. HEART: S1, S2 regular. ABDOMEN: Soft and nontender.[] EXTREMITIES: No clubbing or cyanosis. CLAM GROWER: Awake, alert, and oriented x3. No focal deficit. Impressions: 1. Obstructive sleep apnea-hypopnea syndrome. Patient patient has difficulties to use CPAP equipment, she did not receive nasal pillow mask which was recommended during previous visit. 2. Hypertension. 3. Depression. 4. Obesity. 5. Status post cholecystectomy. 6. Status post decompression brain surgery. 7. Status post tubal ligation. Plan: 1. Continue using PAP equipment every night for the whole night. 2. To change air filter at least 1-2 times per month. 3. PAP unit should stay lower then position of the head. 4. Advised patient to remove all remaining water from humidifier canister daily and make it dry after each usage. Refill canister with fresh distilled water before each usage. 5. Sleep hygiene with regular time in bed for at least 8 hours. 6. Precautions related to driving. No driving if feel any sleepiness. 7. I will maintain prescription for PAP supplies including mask, tube, filters. Patient should get nasal pillow mask as soon as possible. 8. Follow up visit in 2 months or earlier if patient has any problems. 9. Watching weight. Thank you very much for allowing me to participate in the management of your patient. Manolo Perez MD, PhD, FAASM. Diplomat of [place] [employer], Sleep Medicine Board by [place] [employer] [facility] [place]
== END ==
LOC: SLEEP 11:20
PROVIDERS: ATTEND Internal Medicine
DX: G47.33 Obstructive sleep apnea (adult) (pediatric) (principal); I10 Essential (primary) hypertension; F32.A Depression, unspecified; E66.9 Obesity, unspecified; Z90.49 Acquired absence of other specified parts of digestive tract; Z99.89 Dependence on other enabling machines and devices; Z98.51 Tubal ligation status
CPT/HCPCS: 99212

== ENCOUNTER 2023-08-09 10:10 | Emergency (ER) | payer BC ==
[2023-08-09 10:14] VITALS: BP 138/92; PULSE 65; RESP 18
--- NOTE | 2023-08-09 10:29 | ED ---
General Adult HPI - General Chief complaint: Allergic Reaction Stated complaint: Allergic Reaction Time Seen by Provider: 08/09/23 10:28 Source: patient, RN notes reviewed Mode of arrival: ambulatory Limitations: no limitations - History of Present Illness Initial comments: Patient is a 38-year-old female presented to the ER with a chief complaint of le ft-sided facial swelling/tenderness. Patient states she has an upper molar on the left side that is due to be pulle. She states she was scheduled today to have it extracted but due to the facial swelling and pain she was told to come to the ER. Patient states since Wednesday she has been having chills, nausea/vomiting, left-sided facial swelling extending into her eye. Denies any visual disturbances. On Wednesday night she does report a fever. She has been treated in the past with antibiotics for this impacted tooth. She has been using [id number] Tylenol Motrin every 4-6 hours for pain control without relief. She also is endorsing a headache. Denies any chest pain, shortness of breath, difficulty swallowing, difficulty breathing, abdominal pain. - Related Data Home Medications Medication Instructions Recorded Confirmed Buprenorphine HCl/Naloxone HCl 1 film PO BID 04/08/18 01/05/22 [Suboxone 8 mg-2 mg Sl Film] ARIPiprazole [Abilify] 5 mg PO HS 01/05/22 01/05/22 Metoprolol Succinate (ER) [Toprol 50 mg PO DAILY 01/05/22 01/05/22 Xl] Ondansetron Odt [Zofran Odt] 4 mg PO DAILY PRN 01/05/22 01/05/22 Sertraline [Zoloft] 150 mg PO DAILY 01/05/22 01/05/22 hydroCHLOROthiazide 25 mg PO DAILY 01/05/22 01/05/22 methocarbamoL [Robaxin-750] 750 mg PO TID PRN 01/05/22 01/05/22 Previous Rx's Medication Instructions Recorded Ondansetron Odt [Zofran Odt] 4 mg PO Q8HR PRN #10 tab 08/09/23 clindamycin HCL 300 mg PO TID #21 cap 08/09/23 Allergies Allergy/AdvReac Type Severity Reaction Status Date / Time No Known Allergies Allergy Verified 01/05/22 23:08 Review of Systems ROS Statement: Those systems with pertinent positive or pertinent negative responses have been documented in the HPI. ROS Other: All systems not noted in ROS Statement are negative. Past Medical History Past Medical History: Hypertension History of Any Multi-Drug Resistant Organisms: None Reported Past Surgical History: Cholecystectomy, Tubal Ligation Past Psychological History: Anxiety, Depression Smoking Status: Former smoker, Vaper Past Alcohol Use History: None Reported Past Drug Use History: None Reported - Past Family History Father Family Medical History: Diabetes Mellitus, Hypertension, Myocardial Infarction ([place]) Mother Family Medical History: Cancer General Exam Limitations: no limitations General appearance: alert, in no apparent distress Head exam: Present: atraumatic, normocephalic, normal inspection Eye exam: Present: normal appearance, PERRL, EOMI. Absent: scleral icterus, conjunctival injection, periorbital swelling ENT exam: Present: normal exam, mucous membranes moist, TM's normal bilaterally, other (Broken left upper molar. Tenderness to maxillary and frontal sinuses. Mild edema to left maxillary sinus.) Respiratory exam: Present: normal lung sounds bilaterally. Absent: respiratory distress, wheezes, rales, rhonchi, stridor Cardiovascular Exam: Present: regular rate, normal rhythm, normal heart sounds. Absent: systolic murmur, diastolic murmur, rubs, gallop, clicks Neurological exam: Present: alert, oriented X3, CN II-XII intact Psychiatric exam: Present: normal affect, normal mood Skin exam: Present: warm, dry, intact, normal color. Absent: rash Course Vital Signs 08/09/23 08/09/23 10:12 10:56 Temperature 98.3 F 98.5 F Pulse Rate 65 Respiratory 18 Rate Blood Pressure 138/92 O2 Sat by Pulse 98 Oximetry Medical Decision Making - Medical Decision Making Was pt. sent in by a medical professional or institution (, PA, MEDICAL LAB TECHNOLOGIST, urgent care, hospital, or long-term...) When possible be specific @ -No Did you speak to anyone other than the patient for history (EMS, parent, family, police, friend...)? What history was obtained from this source @ -No Did you review nursing and triage notes (agree or disagree)? Why? @ -I reviewed and agree with nursing and triage notes Were old charts reviewed (outside hosp., previous admission, EMS record, old EKG, old radiological studies, urgent care reports/EKG's, long-term records)? Report findings @ -No old charts were reviewed Differential Diagnosis (chest pain, altered mental status, abdominal pain women, abdominal pain men, vaginal bleeding, weakness, fever, dyspnea, syncope, headache, dizziness, GI bleed, back pain, seizure, CVA, palpatations, mental health, musculoskeletal)? @ -Dental cavity fractured tooth, pulpitis, dental abscess this list is not meant to be all-inclusive. EKG interpreted by me (3pts min.). @ -None X-rays interpreted by me (1pt min.). @ -None done CT interpreted by me (1pt min.). @ -None done U/S interpreted by me (1pt. min.). @ -None done What testing was considered but not performed or refused? (CT, X-rays, U/S, labs)? Why? @ -None What meds were considered but not given or refused? Why? @ -None Did you discuss the management of the patient with other professionals (professionals i.e. , PA, MEDICAL LAB TECHNOLOGIST, lab, RT, psych nurse, social work lecturer, corporation lawyer, teacher, medical officer, manager of case)? Give summary @ -No Was smoking cessation discussed for >3mins.? @ -No Was critical care preformed (if so, how long)? @ -No Were there social determinants of health that impacted care today? How? (Homelessness, low income, unemployed, alcoholism, drug addiction, transportation, low edu. Level, literacy, decrease access to med. care, fdc, rehab)? @ -No Was there de-escalation of care discussed even if they declined (Discuss DNR or withdrawal of care, Hospice)? DNR status @ -No What co-morbidities impacted this encounter? (DM, HTN, Smoking, COPD, CAD, Cancer, CVA, ARF, Chemo, Hep., AIDS, mental health diagnosis, sleep apnea, morbid obesity)? @ -None Was patient admitted / discharged? Hospital course, mention meds given and route, prescriptions, significant lab abnormalities, going to OR and other pertinent info. @ -Discharge. Patient is a 38-year-old female presented to ER with a chief complaint of left-sided facial swelling. History and physical exam were completed. Vitals stable. Patient no signs of acute distress and nontoxic- appearing. Patient did have a broken left upper molar. Mild edema and tenderness to maxillary sinus on the left. No drainable abscess on exam. Patient received 6 mg Decadron and Zofran in the ER for symptom control. Patient prescribed zofran and clindamycin for infection prophylaxis. Advised her to follow-up with dentist as soon as possible as she was scheduled today to have extraction of left upper molar. Starter pack of Tylenol 3 given. I educated patient on similar importance of completing full course of antibiotics. Return parameters were discussed. Patient be discharged stable condition with follow-up to dentist. Patient expressed understanding and agreement with care plan. Undiagnosed new problem with uncertain prognosis? @ -No Drug Therapy requiring intensive monitoring for toxicity (Heparin, Nitro, Insulin, Cardizem)? @ -No Were any procedures done? @ -No Diagnosis/symptom? @ -Fractured tooth/dental infection Acute, or Chronic, or Acute on Chronic? @ -Acute Uncomplicated (without systemic symptoms) or Complicated (systemic symptoms)? @ -Uncomplicated Side effects of treatment? @ -No Exacerbation, Progression, or Severe Exacerbation? @ -No Poses a threat to life or bodily function? How? (Chest pain, [place], [place], pneumonia, PE, COPD, DKA, ARF, appy, cholecystitis, CVA, Diverticulitis, Homicidal, Suicidal, threat to staff... and all critical care pts) @ -No Disposition Clinical Impression: Pain, dental, Fractured tooth Disposition: HOME SELF-CARE Condition: Stable Instructions (If sedation given, give patient instructions): Toothache (ED) Additional Instructions: Please follow-up with dentist in the next 1 to 2 days. Pleat full course of antibiotics. Return to ER for any new or worsening symptoms. Prescriptions: clindamycin HCL 300 mg PO TID #21 cap Ondansetron Odt [Zofran Odt] 4 mg PO Q8HR PRN #10 tab PRN Reason: Nausea Is patient prescribed a controlled substance at d/c from ED?: No Referrals: Yina Barboza MD [Primary Care Provider] - 1-2 days Time of Disposition: 10:43
[2023-08-09] MEDS: ACET/COD 300 MG/30 MG STARTER PACK 6 TAB BTL PO STA (10:52)
[2023-08-09] MEDS: dexAMETHasone 2 MG TAB PO STA (10:52)
[2023-08-09] MEDS: ONDANSETRON ODT 4 MG TAB PO STA (10:52)
[2023-08-09 11:15] VITALS: TEMP 98.5
== END 2023-08-09 10:57 | disposition home or self-care (01) ==
LOC: EC 10:10
DX: K03.81 Cracked tooth (principal); I10 Essential (primary) hypertension; F41.9 Anxiety disorder, unspecified; F32.A Depression, unspecified; F17.290 Nicotine dependence, other tobacco product, uncomplicated; Z79.899 Other long term (current) drug therapy
CPT/HCPCS: 99283; J8540

== ENCOUNTER 2023-08-11 13:40 | Emergency (ER) | payer BC ==
[2023-08-11 14:11] VITALS: BP 115/80; PULSE 81; RESP 18; TEMP 98.2
--- NOTE | 2023-08-11 15:57 | ED ---
General Adult HPI - General Chief complaint: Dental/Oral Stated complaint: Dental swelling and pain Time Seen by Provider: 08/11/23 15:05 Source: patient, RN notes reviewed, old records reviewed Mode of arrival: ambulatory Limitations: no limitations - History of Present Illness Initial comments: 38 yo female presenting with left upper dental pain. This has been present for approximately 2 weeks. Patient completed amoxicillin several days prior and was started on clindamycin. She has had facial swelling and significant pain. She was sent in by both her dentist and primary care provider for further evaluation. There was concern that the patient may have elevated white blood cell count and may require IV antibiotics. - Related Data Home Medications Medication Instructions Recorded Confirmed Buprenorphine HCl/Naloxone HCl 1 film PO BID 04/08/18 01/05/22 [Suboxone 8 mg-2 mg Sl Film] ARIPiprazole [Abilify] 5 mg PO HS 01/05/22 01/05/22 Metoprolol Succinate (ER) [Toprol 50 mg PO DAILY 01/05/22 01/05/22 Xl] Ondansetron Odt [Zofran Odt] 4 mg PO DAILY PRN 01/05/22 01/05/22 Sertraline [Zoloft] 150 mg PO DAILY 01/05/22 01/05/22 hydroCHLOROthiazide 25 mg PO DAILY 01/05/22 01/05/22 methocarbamoL [Robaxin-750] 750 mg PO TID PRN 01/05/22 01/05/22 Previous Rx's Medication Instructions Recorded Ondansetron Odt [Zofran Odt] 4 mg PO Q8HR PRN #10 tab 08/09/23 clindamycin HCL 300 mg PO TID #21 cap 08/09/23 Ibuprofen [Motrin] 800 mg PO Q8H PRN #24 tab 08/11/23 Allergies Allergy/AdvReac Type Severity Reaction Status Date / Time No Known Allergies Allergy Verified 08/11/23 14:00 Review of Systems ROS Statement: Those systems with pertinent positive or pertinent negative responses have been documented in the HPI. ROS Other: All systems not noted in ROS Statement are negative. Past Medical History Past Medical History: Hypertension History of Any Multi-Drug Resistant Organisms: None Reported Past Surgical History: Cholecystectomy, Tubal Ligation Past Psychological History: Anxiety, Depression Smoking Status: Former smoker, Vaper Past Alcohol Use History: None Reported Past Drug Use History: None Reported - Past Family History Father Family Medical History: Diabetes Mellitus, Hypertension, Myocardial Infarction ([place]) Mother Family Medical History: Cancer General Exam Limitations: no limitations General appearance: alert, in no apparent distress Head exam: Present: atraumatic, normocephalic Eye exam: Present: normal appearance, PERRL ENT exam: Present: other (Left upper molar, dental caries and fractured tooth. Mild left facial swelling) Neck exam: Absent: lymphadenopathy Respiratory exam: Present: normal lung sounds bilaterally. Absent: respiratory distress, wheezes Cardiovascular Exam: Present: regular rate, normal rhythm GI/Abdominal exam: Present: soft. Absent: distended, tenderness Extremities exam: Present: normal inspection, normal capillary refill. Absent: pedal edema Neurological exam: Present: alert, oriented X3, CN II-XII intact. Absent: motor sensory deficit Skin exam: Present: warm, dry, intact Course Vital Signs 08/11/23 13:55 Temperature 98.2 F Pulse Rate 81 Respiratory 18 Rate Blood Pressure 115/80 O2 Sat by Pulse 100 Oximetry Medical Decision Making - Medical Decision Making Was pt. sent in by a medical professional or institution (Dr. PA, ACCOUNTS RECEIVABLE SPECIALIST, urgent care, hospital, or correction...) When possible be specific @ -No Did you speak to anyone other than the patient for history (EMS, parent, family, police, friend...)? What history was obtained from this source @ -No Did you review nursing and triage notes (agree or disagree)? Why? @ -I reviewed and agree with nursing and triage notes Were old charts reviewed (outside hosp., previous admission, EMS record, old EKG, old radiological studies, urgent care reports/EKG's, correction records)? Report findings @ -No old charts were reviewed Differential Diagnosis (chest pain, altered mental status, abdominal pain women, abdominal pain men, vaginal bleeding, weakness, fever, dyspnea, syncope, headache, dizziness, GI bleed, back pain, seizure, CVA, palpatations, mental health, musculoskeletal)? @ -Pulpitis, tooth ache, dental abscess EKG interpreted by me (3pts min.). @ -As above X-rays interpreted by me (1pt min.). @ -None done CT interpreted by me (1pt min.). @ -None done U/S interpreted by me (1pt. min.). @ -None done What testing was considered but not performed or refused? (CT, X-rays, U/S, labs)? Why? @ -None What meds were considered but not given or refused? Why? @ -None Did you discuss the management of the patient with other professionals (professionals i.e. , PA, ACCOUNTS RECEIVABLE SPECIALIST, lab, RT, psych nurse, social welfare administrator, anesthesiology resident, teacher, horticultural technical officer, watch case polisher)? Give summary @ -No Was smoking cessation discussed for >3mins.? @ -No Was critical care preformed (if so, how long)? @ -No Were there social determinants of health that impacted care today? How? (Homelessness, low income, unemployed, alcoholism, drug addiction, transportation, low edu. Level, literacy, decrease access to med. care, fpc, rehab)? @ -No Was there de-escalation of care discussed even if they declined (Discuss DNR or withdrawal of care, Hospice)? DNR status @ -No What co-morbidities impacted this encounter? (DM, HTN, Smoking, COPD, CAD, Cancer, CVA, ARF, Chemo, Hep., AIDS, mental health diagnosis, sleep apnea, morbid obesity)? @ -None Was patient admitted / discharged? Hospital course, mention meds given and route, prescriptions, significant lab abnormalities, going to OR and other pertinent info. @ -38-year-old female with persistent left upper molar tooth ache. Patient does have mild facial swelling. There is no drainable abscess. There is dental caries and fractured molar which is likely the cause of her symptoms. She is currently on 300 mg of clindamycin 3 times daily which she has been on for the past 2 days. She is afebrile. Her white blood cell count is 8 with no left shift. She has normal electrolytes. She will continue oral antibiotics as prescribed and follow-up with her dentist. Undiagnosed new problem with uncertain prognosis? @ -No Drug Therapy requiring intensive monitoring for toxicity (Heparin, Nitro, Insulin, Cardizem)? @ -No Were any procedures done? @ -No Diagnosis/symptom? @ -Dental caries, dental infection Acute, or Chronic, or Acute on Chronic? @ -Acute Uncomplicated (without systemic symptoms) or Complicated (systemic symptoms)? @ -Default Side effects of treatment? @ -No Exacerbation, Progression, or Severe Exacerbation? @ -No Poses a threat to life or bodily function? How? (Chest pain, [place], [place], pneumonia, PE, COPD, DKA, ARF, appy, cholecystitis, CVA, Diverticulitis, Homicidal, Suicidal, threat to staff... and all critical care pts) @ -Low risk at this time - Lab Data Result diagrams: 08/11/23 16:27 08/11/23 16: Lab Results 08/11/23 08/11/23 Range/Units 16:27 16:27 WBC 8.3 (3.8-10.6) k/uL RBC 4.25 (3.80-5.40) m/uL Hgb 12.8 (11.4-16.0) gm/dL Hct 37.4 (34.0-46.0) % MCV 88.0 (80.0-100.0) fL MCH 30.0 (25.0-35.0) pg MCHC 34.1 (31.0-37.0) g/dL RDW 13.2 (11.5-15.5) % Plt Count 289 (150-450) k/uL MPV 8.1 Neutrophils % 66 % Lymphocytes % 27 % Monocytes % 4 % Eosinophils % 1 % Basophils % 0 % Neutrophils # 5.5 (1.3-7.7) k/uL Lymphocytes # 2.3 (1.0-4.8) k/uL Monocytes # 0.4 (0-1.0) k/uL Eosinophils # 0.1 (0-0.7) k/uL Basophils # 0.0 (0-0.2) k/uL Sodium 138 (137-145) mmol/L Potassium 3.0 L (3.5-5.1) mmol/L Chloride 102 (98-107) mmol/L Carbon Dioxide 30 (22-30) mmol/L Anion Gap 6 mmol/L BUN 9 (7-17) mg/dL Creatinine 0.50 L (0.52-1.04) mg/dL Est GFR (CKD-EPI)AfAm >90 (>60 ml/min/1.73 sqM) Est GFR (CKD-EPI)NonAf >90 (>60 ml/min/1.73 sqM) Glucose 76 (74-99) mg/dL Calcium 8.8 (8.4-10.2) mg/dL Total Bilirubin 0.6 (0.2-1.3) mg/dL AST 24 (14-36) U/L ALT 19 (4-34) U/L Alkaline Phosphatase 70 (38-126) U/L Total Protein 6.0 L (6.3-8.2) g/dL Albumin 3.5 (3.5-5.0) g/dL Disposition Clinical Impression: Fractured tooth, Acute pulpitis Disposition: HOME SELF-CARE Condition: Fair Instructions (If sedation given, give patient instructions): Toothache (ED) Prescriptions: Ibuprofen [Motrin] 800 mg PO Q8H PRN #24 tab PRN Reason: Pain Is patient prescribed a controlled substance at d/c from ED?: No Referrals: Yina Barboza MD [Primary Care Provider] - 1-2 days Time of Disposition: 17:44
[2023-08-11] MEDS: KETOROLAC 15 MG/ML 1 ML VIAL IVP STA (17:02)
[2023-08-11] MEDS: AMPICILLIN-SULBACTAM 3 GM in SODIUM CHLORIDE 0.9% 100 ML IVPB STA (17:05)
[2023-08-11] MEDS: SODIUM CHLORIDE 0.9% 500 ML 500 ML IV ONE (17:05)
[2023-08-11 17:17] LABS: Basophils % (A) 0 %; Eosinophils # (A) 0.1 k/uL (0-0.7); Eosinophils % (A) 1 %; HCT 37.4 % (34.0-46.0); HGB 12.8 gm/dL (11.4-16.0); Lymphocytes # (A) 2.3 k/uL (1.0-4.8); Lymphocytes % (A) 27 %; MCHC 34.1 g/dL (31.0-37.0); Mean Platelet Volume 8.1; Monocytes # (A) 0.4 k/uL (0-1.0); Monocytes % (A) 4 %; Neutrophils # (A) 5.5 k/uL (1.3-7.7); Neutrophils % (A) 66 %; Platelet Count 289 k/uL (150-450); RBC 4.25 m/uL (3.80-5.40); RDW 13.2 % (11.5-15.5); WBC 8.3 k/uL (3.8-10.6)
[2023-08-11 17:46] LABS: ALT 19 U/L (4-34); AST 24 U/L (14-36); African American GFR (CKD) >90 (>60 ml/min/1.73 sqM); Albumin 3.5 g/dL (3.5-5.0); Alkaline Phosphatase 70 U/L (38-126); Anion Gap 6 mmol/L; Blood Urea Nitrogen 9 mg/dL (7-17); Calcium 8.8 mg/dL (8.4-10.2); Carbon Dioxide 30 mmol/L (22-30); Chloride 102 mmol/L (98-107); Glucose 76 mg/dL (74-99); Non-African American GFR(CKD) >90 (>60 ml/min/1.73 sqM); Sodium 138 mmol/L (137-145); Total Bilirubin 0.6 mg/dL (0.2-1.3)
[2023-08-11] MEDS: POTASSIUM CHLORIDE ER 20 MEQ TAB.ER PO STA (18:14)
== END 2023-08-11 18:17 | disposition home or self-care (01) ==
LOC: EC 13:40
DX: K03.81 Cracked tooth (principal); K02.9 Dental caries, unspecified; K04.01 Reversible pulpitis; I10 Essential (primary) hypertension; F41.9 Anxiety disorder, unspecified; F32.A Depression, unspecified; F17.290 Nicotine dependence, other tobacco product, uncomplicated; Z79.899 Other long term (current) drug therapy
CPT/HCPCS: 36415; 80053; 85025; 99283; 96365; 96375; J0295; J1885

== ENCOUNTER → 2024-03-16 | Outpatient (CLI) | payer BC ==
[2024-03-16 08:51] VITALS: BP 139/87; PULSE 97; RESP 17; TEMP 98
--- NOTE | 2024-03-16 09:06 | P.GSCN ---
History of Present Illness Consult date: 03/16/24 Reason for Consult: axillary mass right Requesting physician: Yina Barboza History of present illness: Camilla is a 38 year old female seen in consultation for Dr. Barboza regarding a palpable right axillary mass. She underwent a bilateral 3D breast tomosynthesis on 02-15-2024. An additional right lateral view of the breast was obtained. A right breast ultrasound was also performed. The findings were that the breast were heterogeneously dense. No suspicious masses, microcalcifications, or areas of architectural distortion were present. There was a left axillary lymph node noted. No mammographic or ultrasound abnormality was seen to account for the patient's palpable finding in the right axilla. These radiographs were personally reviewed and interpreted. The feels a lump under her right arm. It has been present for about two months. It has not changed in size. It is not painful. She has not had any surgery on her breast. She has not had any trauma or infection in her breast or axilla. She has not noted if the lump changes with her periods She has bilateral macromastia with chronic back pain. She has had to take narcotics secondary to her back and neck pain. She additionally has bilateral shoulder notching. 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 Sharma) Social History: nicotine: 1/2 PPD for 15 years alcohol: none drugs: none Review of Systems - Constitutional Denies fever, Denies weight loss - EENT Eyes: denies blurred vision Ears: bilateral: tinnitus (occasional), deny: decreased hearing Ears, nose, mouth and throat: Reports as per HPI, Reports headache - Breasts bilateral: as per HPI - Cardiovascular Denies chest pain, Denies shortness of breath - Respiratory Reports as per HPI, Denies cough - Gastrointestinal Reports as per HPI - Genitourinary Genitourinary: Denies dysuria, Denies hematuria Menstruation: Reports as per HPI - Musculoskeletal Musculoskeleta Comment(s): mucscle aches with work, lifting heavy weight Reports as per HPI - Integumentary Denies rash, Denies unusual bruising - Neurological Reports headaches, Denies syncope - Psychiatric Reports depression - Endocrine Reports fatigue - Hematologic/Lymphatic Denies easy bleeding, Denies easy bruising - Allergic/Immunologic Reports as per HPI, Reports seasonal allergies Past Medical History Past Medical History: Hypertension History of Any Multi-Drug Resistant Organisms: None Reported Past Surgical History: Cholecystectomy, Tubal Ligation Past Psychological History: Anxiety, Depression Smoking Status: Former smoker, Vaper Past Alcohol Use History: None Reported Past Drug Use History: None Reported - Past Family History Father Family Medical History: Diabetes Mellitus, Hypertension, Myocardial Infarction ([place]) Mother Family Medical History: Cancer Medications and Allergies Home Medications Medication Instructions Recorded Confirmed Type Buprenorphine HCl/Naloxone HCl 1 film PO BID 04/08/18 01/05/22 History [Suboxone 8 mg-2 mg Sl Film] ARIPiprazole [Abilify] 5 mg PO HS 01/05/22 01/05/22 History Metoprolol Succinate (ER) [Toprol 50 mg PO DAILY 01/05/22 01/05/22 History Xl] Ondansetron Odt [Zofran Odt] 4 mg PO DAILY PRN 01/05/22 01/05/22 History Sertraline [Zoloft] 150 mg PO DAILY 01/05/22 01/05/22 History hydroCHLOROthiazide 25 mg PO DAILY 01/05/22 01/05/22 History methocarbamoL [Robaxin-750] 750 mg PO TID PRN 01/05/22 01/05/22 History Ondansetron Odt [Zofran Odt] 4 mg PO Q8HR PRN #10 tab 08/09/23 Rx clindamycin HCL 300 mg PO TID #21 cap 08/09/23 Rx Ibuprofen [Motrin] 800 mg PO Q8H PRN #24 tab 08/11/23 Rx Allergies Allergy/AdvReac Type Severity Reaction Status Date / Time No Known Allergies Allergy Verified 08/11/23 14:00 Surgical - Exam - General moderate distress - Eyes normal ocular movement - Neck trachea midline - Respiratory normal respiratory effort, clear to auscultation - Cardiovascular Rhythm: regular Heart Sounds: normal: S1, S2 - Abdomen Abdomen: soft, non tender, no guarding, no rigid, no rebound - Integumentary normal turgor - Neurologic no disoriented, no combative - Musculoskeletal normal gait - Psychiatric oriented to time, oriented to person, oriented to place, speech is normal, memory intact Breast Exam: BRA: 42G Inspection: Bilateral grade 3 ptosis Palpation: Right breast: Multi positional exam no dominant masses or nodules of concern Right axilla: No specific lump or masses identified on today's examination there is a nevus in the right axilla which is dark, adenopathy of concern Left breast: Multi positional exam no dominant masses or nodules of concern Left axilla: No adenopathy of concern Results bilateral mammogram and right breast ultrasound reviewed personally Assessment and Plan Assessment: Impression: Dark nevus under right arm No specific mass palpated in right axilla or seen radiographically Symptomatic macromastia with chronic back pain/headaches/shoulder notching Positive family history of breast cancer Plan: Resection of nevus under right arm Consider bilateral breast reduction, this is not being done for cosmetic reasons it is done secondary to chronic back pain , and headaches, patient has been dependent on narcotics related to this and is trying to get off of this, bilateral shoulder notching Call to examine breast secondary to their large size and density CC: Dr. Marely Elaine
== END ==
LOC: WWCWWP 08:10
PROVIDERS: ATTEND Surgery
DX: R92.333 Mammographic heterogeneous density, bilateral breasts (principal); D22.61 Melanocytic nevi of right upper limb, including shoulder; N62 Hypertrophy of breast; M54.9 Dorsalgia, unspecified; G89.29 Other chronic pain; R51.9 Headache, unspecified; F11.20 Opioid dependence, uncomplicated; Z80.3 Family history of malignant neoplasm of breast; Z87.891 Personal history of nicotine dependence